=== PATIENT | male | born 1945 | race Caucasian/White ===

== ENCOUNTER → 2016-08-20 | Outpatient (CLI) | payer OTHER | LOC: M LAB 12:48 | PROVIDERS: ATTEND Physician Assistant Medical | DX: E29.1 Testicular hypofunction (principal) ==

== ENCOUNTER → 2016-12-18 | Outpatient (REF) | payer OTHER ==
[2016-12-18 20:38] LABS: CALCIUM OXALATE CRYSTALS LARGE
== END ==
LOC: M LAB REF 16:39
PROVIDERS: ATTEND Physician Assistant
DX: R30.0 Dysuria (principal)

== ENCOUNTER → 2016-12-20 | Outpatient (REF) | payer OTHER ==
[2016-12-20 14:56] LABS: MICROSCOPIC INDICATED? MAN YES (NO)
[2016-12-20 15:00] LABS: RBC, URINE 30-40 /hpf (0-3)
[2016-12-20 15:01] LABS: SQUAMOUS EPITHELIAL CELL URINE SMALL AMOUNT /hpf (SMALL AMT)
[2016-12-20 15:02] LABS: BACTERIA, URINE NONE SEEN; MICROSCOPIC EXAM PERFORMED
== END ==
LOC: M LAB REF 12:57
PROVIDERS: ATTEND Physician Assistant Medical
DX: R30.0 Dysuria (principal)

== ENCOUNTER → 2016-12-25 | Outpatient (REF) | payer OTHER | LOC: M SMT 17:16 | PROVIDERS: ATTEND Nurse Practitioner Women's Health | DX: R39.12 Poor urinary stream (principal) ==

== ENCOUNTER → 2016-12-26 | Outpatient (CLI) | payer OTHER ==
[~2016-12-26] MED LIST: ASPI81CH32 PO; BIMA01SOL OU; CALC1TAB49 PO; CENT1CHW5 PO; COLA100C3 PO; D 501TAB PO; ISTA0.5S OU; METF-699 PO; METF500T PO; MINO1CAP PO; MYSO50TA5 PO; ORAC40CA PO; PRAV1TAB39 PO; PRIL20CA9 PO; PROP40TA PO; REFR0.5D8 OU; VITA100072 PO; VITA20008 PO; [UNRECOGNIZED DRUG - CODE] PO
[2016-12-29 00:06] LABS: TESTOSTERONE %FREE+WEAKLY BOUN 19.7 % (9.0-46.0); TESTOSTERONE FREE+WEAKLY BOUND 17.1 ng/dL (40.0-250.0)
== END ==
LOC: M LAB 06:41
PROVIDERS: ATTEND Physician Assistant Medical
DX: E29.1 Testicular hypofunction (principal)

== ENCOUNTER 2016-12-29 08:58 | Inpatient (IN) | payer MEDICARE, OTHER ==
[~2016-12-29] VITALS: Ht 182.9 cm; Wt 132.2 kg
[2016-12-29] MEDS ORDERED: PRAV1TAB39 PO (09:23)
[2016-12-29] MEDS ORDERED: [UNRECOGNIZED DRUG - CODE] PO (09:23)
[2016-12-29] MEDS ORDERED: PROP40TA PO (09:23)
[2016-12-29] MEDS ORDERED: PRIL20CA9 PO (09:23)
[2016-12-29] MEDS ORDERED: VITA100072 PO (09:23)
[2016-12-29] MEDS ORDERED: ORAC40CA PO (09:23)
[2016-12-29] MEDS ORDERED: MINO1CAP PO (09:23)
[2016-12-29] MEDS ORDERED: CALC1TAB49 PO (09:23)
[2016-12-29] MEDS ORDERED: ASPI81CH32 PO (09:23)
[2016-12-29] MEDS ORDERED: METF500T13 PO (09:23)
[2016-12-29] MEDS ORDERED: REFR0.5D8 OU (09:23)
[2016-12-29] MEDS ORDERED: COLA100C5 PO (09:23)
[2016-12-29] MEDS ORDERED: VITA20008 PO (09:23)
[2016-12-29] MEDS ORDERED: MYSO50TA5 PO (09:23)
[2016-12-29] MEDS ORDERED: ISTA0.5S OU (09:23)
[2016-12-29] MEDS ORDERED: BIMA01SOL OU (09:23)
[2016-12-29 10:12] LABS: BASO % 0.6 % (0.0-1.0); EOS # 0.2 K/mm3 (0.0-0.50); EOS % 2.7 % (0.0-3.0); LARGE UNSTAINED CELL # 0.1 K/mm3 (0.0-0.4); LYMPH # 1.3 K/mm3 (1.5-4.5); LYMPH % 18.9 % (24.0-44.0); MEAN CORPUSCULAR HEMOGLOBIN 32.4 pg (27.0-33.0); MEAN CORPUSCULAR HGB CONC 34.1 g/dl (32.0-36.5); MEAN CORPUSCULAR VOLUME 95.2 fl (80.0-96.0); MONO # 0.3 K/mm3 (0.0-0.8); MONO % 4.8 % (0.0-5.0); NEUTROPHILS # 4.7 K/mm3 (1.8-7.7); NEUTROPHILS % 71.1 % (36.0-66.0); PLATELET COUNT, AUTOMATED 133 k/mm3 (150-450); RED CELL DISTRIBUTION WIDTH 13.4 % (11.5-14.5); WHITE BLOOD COUNT 6.7 K/mm3 (4.0-10.0)
[2016-12-29 10:22] LABS: ABG BASE EXCESS 1.6 (-2.0-2.0); ABG HCO3 25.6 MEQ/L (22.0-26.0); ABG PARTIAL PRESSURE CO2 38.5 mmHg (35.0-45.0); ABG PARTIAL PRESSURE O2 62.6 mmHg (75.0-100.0); ABG STANDARD HCO3 25.7 MEQ/L (22.0-26.0); ABG TOTAL CO2 26.8 MEQ/L (23.0-31.0); ABG pH (ARTERIAL) 7.441 UNITS (7.350-7.450)
[2016-12-29 10:45] LABS: ALBUMIN 3.5 GM/DL (3.2-5.2); ALBUMIN/GLOBULIN RATIO 0.88 (1.00-1.93); ALKALINE PHOSPHATASE 91 U/L (45-117); ALT/SGPT 18 U/L (12-78); ANION GAP 7 MEQ/L (8-16); AST/SGOT 13 U/L (15-37); BILIRUBIN,DIRECT 0.1 MG/DL (0.0-0.2); BILIRUBIN,TOTAL 0.6 MG/DL (0.2-1.0); BLOOD UREA NITROGEN 12 MG/DL (7-18); CALCIUM LEVEL 8.6 MG/DL (8.8-10.2); CARBON DIOXIDE LEVEL 27 MEQ/L (21-32); CHLORIDE LEVEL 104 MEQ/L (98-107); CREATININE FOR GFR 0.77 MG/DL (0.70-1.30); GLOMERULAR FILTRATION RATE > 60.0 (>49); GLUCOSE, FASTING 195 MG/DL (80-110); POTASSIUM SERUM 4.4 MEQ/L (3.5-5.1); SODIUM LEVEL 138 MEQ/L (136-145); TOTAL PROTEIN 7.5 GM/DL (6.4-8.2)
--- NOTE | 2016-12-29 10:50 | REP ---
Clinical: Dyspnea and cough . Comparison: 11/02/2011 . Findings: The mediastinum and cardiac silhouette are stable and within normal limits for portable technique. The lung henao are clear without acute consolidation, effusion, or pneumothorax. Skeletal structures are intact. Impression: No acute cardiopulmonary process appreciated. Signed by Kailash Bautista MD 12/29/2016 10:42 A
[2016-12-29] MEDS ORDERED: ACETAMINOPHEN 325 MG TAB PO ONE (11:15)
[2016-12-29] MEDS ORDERED: PROPRANOLOL 20 MG TAB PO ONE (11:15)
[2016-12-29] MEDS ORDERED: ISOVUE-370 76% 100ML VIAL (Q9967) As Ordered ONE (11:43)
--- NOTE | 2016-12-29 12:22 | REP ---
Clinical: Hypoxia and shortness of breath. Technique: Axial contrast enhanced images from the thoracic inlet to the upper abdomen using 100 ml Isovue 370 intravenous contrast material with multiplanar re-formations. Findings: Significant, acute pulmonary emboli are identified including right main pulmonary artery with extension into the right upper lobe, right lower lobe, and right middle lobe pulmonary arteries as well as second order left-sided emboli extending to the lingula and left lower lobe pulmonary arteries. A left upper lobe infiltrate along with bilateral perihilar infiltrates suggest associated multifocal pneumonia. No effusion. No pneumothorax. Thoracic aorta and heart/pericardium are normal. Surrounding musculoskeletal structures intact. Impression: Significant bilateral pulmonary emboli with multifocal pneumonia. Findings discussed with Dr. Glasgow of the emergency department. Signed by Kailash Bautista MD 12/29/2016 12:14 P
--- NOTE | 2016-12-29 12:57 | REP ---
Clinical: Acute pulmonary embolus. Evaluate for DVT. Technique: Flores scale and color Doppler evaluation using linear high frequency transducer. Findings: Ultrasound examination of the right and left lower extremity deep venous structures from the common femoral vein to the popliteal vein demonstrates acute thrombus in the right popliteal vein and otherwise normal compressibility flow and wave patterns in response to respiration and augmentation. The left lower extremity is completely normal and without DVT. Impression: Right lower extremity with popliteal vein thrombus. Normal left lower extremity without DVT. Signed by Kailash Bautista MD 12/29/2016 12:48 P
[2016-12-29 13:33] LABS: INR 1.08
[2016-12-29] MEDS ORDERED: DEXTROSE 50% 50 ML SYRINGE IV PRN (14:00)
[2016-12-29] MEDS ORDERED: GLUCAGON FOR INJ 1 MG VIAL (J1610) SC PRN (14:00)
[2016-12-29] MEDS ORDERED: CENT1CHW5 PO (14:04)
[2016-12-29] MEDS ORDERED: D 501TAB PO (14:06)
[2016-12-29] MEDS ORDERED: METF-699 PO (14:06)
[2016-12-29] MEDS ORDERED: LABETALOL HCL 100 MG/20 ML VIAL IV STA (14:08)
[2016-12-29] MEDS: ENOXAPARIN 150 MG/ML SYR (J1650) SC SCH (15:12)
[2016-12-29 16:00] VITALS: BP 158/83
--- NOTE | 2016-12-29 16:28 | HPE ---
DATE OF ADMISSION: 12/29/2016 PRIMARY CARE PROVIDER: Dr. Bernard CHIEF COMPLAINT: Dyspnea. HISTORY OF PRESENT ILLNESS: The patient is a 71-year-old male with a past medical history of obstructive sleep apnea, diastolic congestive heart failure (CHF), morbid obesity, who presented with dyspnea that started 3 to 4 days ago. The patient initially had sensation and then it progressed to shortness of breath, especially with exertion. Yesterday, he had some cramping in his right calf. Today he felt an uncomfortable sensation in both calves. His is at bedside and reported that he leads a sedentary lifestyle. The patient responded, "it is because I am chronically tired." He also reports dry cough for 2 to 3 days. Denies chest pain, fever, chills, palpitations, headache, blurry vision. REVIEW OF SYSTEMS: 10-point system was negative except for listed above in history of present illness. PAST MEDICAL HISTORY: Includes: 1. Essential hypertension. 2. Obstructive sleep apnea. The patient uses BiPAP at home. 3. Diastolic congestive heart failure (CHF). 4. Non insulin dependent diabetes. 5. Morbid obesity. 6. Enlarged heart. 7. Low testosterone level. PAST SURGICAL HISTORY: Vasectomy in 1989, umbilical hernia repair in 1993/1994, gastric bypass surgery in 2010. FAMILY HISTORY: Father from myocardial infarction in his 50s. Mother at age 76. She had diabetes, pancreatic insufficiency, coronary artery disease. Paternal grandmother had breast cancer and in her 40s. SOCIAL HISTORY: The patient never smoked. Denies alcohol abuse and recreational drug use. He is and has four children. 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 ALLERGIES TO MEDICATIONS: CARDURA reaction is generalized edema. MEDICATIONS: Include: - baby aspirin - vitamin B12 1000 mcg daily - docusate sodium 100 mg once a day as needed for constipation - minocycline 100 mg by mouth twice a day - omeprazole 20 mg daily - pravastatin 20 mg at nighttime - primidone 50 mg by mouth at night - propranolol 40 mg once a day - Lumigan eye drops, one drop in both eyes at night - calcium citrate with vitamin D 200/250 mg/units two tablets by mouth twice a day - Refresh Tears 0.5% to both eyes three times a day as needed - multivitamin - vitamin D 35,000 units daily - metformin 500 mg by mouth twice a day - Timolol 0.5% solution one drop to both eyes in the morning LABORATORY DATA: White blood cell count 6.7, hemoglobin 15, hematocrit 23, platelets 133. Coagulopathy: INR 1.08, PT 14.2, PTT 35.9. Pending coag level workup. Blood gas showed pH 7.44, PCO2 of 38.5, PO2 of 62.6, bicarbonate 25.6. Oxygen saturation 91.7. Base excess 1.6. Immunology: Pending cardiolipin antibodies. IMAGING STUDIES: Chest x-ray with no acute cardiopulmonary disease. Ultrasound revealed a positive right popliteal vein thrombus. CT angio significant bilateral pulmonary emboli with multiple pneumonia. Findings discussed with Dr. Glasgow. EKG showed normal sinus rhythm at 82 with right ventricular conduction delay. IMPRESSION: 1. Acute hypoxic respiratory failure secondary to pulmonary emboli and pneumonia. 2. Thrombocytopenia. 3. Morbid obesity. 4. History of elf-xlvllyu-brawjecsp diabetes mellitus, uncontrolled. 5. History of hypertension, uncontrolled. 6. History of obstructive sleep apnea, stable. PLAN: The patient is admitted to the progressive care unit (PCU) and started on Lovenox 130 mg twice a day. He will be needing BiPAP at night. Continue oxygen supplementation as needed. Monitor platelet level. Recommend discontinuation if platelet fall below 100. Blood sugar will be monitored and covered with insulin in the hospital. Resume all the home necessary medications. Followup pending anticoagulation workup. The patient was advised to lead a more active life and to improve his diet by cutting out unnecessary calories.
[2016-12-29] MEDS ORDERED: IPRATROPIUM 0.5MG/ALBUTEROL 2.5MG INH SOL UD 3ML (DUONEB)(J7620) NEB PRN (17:45)
[2016-12-29] MEDS: FUROSEMIDE 40 MG/4 ML VIAL (J1940) IV ONE ×2 (17:54→18:00)
[2016-12-29] MEDS: IPRATROPIUM 0.5MG/ALBUTEROL 2.5MG INH SOL UD 3ML (DUONEB)(J7620) NEB SCH ×2 (17:57→19:43)
--- NOTE | 2016-12-29 18:12 | ECGEPIP ---
Stationary ECG Study [facility] - ED Test Date: 2016-12-29 Pat Name: ALFRED MELTON Department: Room: [place] [address] Gender: M [employer] Professor: pedro pablo : 1945 Requested By: Cathy Cespedes Order Number: [id number] Reading MD: Cathy Cespedes Measurements Intervals [place] Rate: 98 P: 56 IA: 191 QRS: 3 QRSD: 90 T: 19 QT: 355 QTc: 454 Interpretive Statements SINUS RHYTHM POSSIBLE RIGHT VENTRICULAR CONDUCTION DELAY INCREASED RATE 11/02/11 Electronically Signed On 12-29-2016 18:11:50 EDT by Cathy Cespedes
[2016-12-29] MEDS: HumaLOG INSULIN (NovoLOG) PER UNIT SC SCH ×2 (18:28→20:56)
[2016-12-29 19:54] VITALS: BP 147/82
[2016-12-29] MEDS ORDERED: DOCUSATE SODIUM 100 MG CAP PO PRN (23:00)
[2016-12-29 23:39] VITALS: BP 143/71
[2016-12-29] MEDS: PRAVASTATIN 20 MG TAB PO SCH (23:40)
[2016-12-29] MEDS: PROPRANOLOL 20 MG TAB PO SCH (23:41)
[2016-12-29] MEDS: PRIMIDONE 50 MG TAB PO SCH (23:41)
[2016-12-29] MEDS: MINOCYCLINE 50 MG CAP PO SCH (23:42)
[2016-12-30] MEDS: IPRATROPIUM 0.5MG/ALBUTEROL 2.5MG INH SOL UD 3ML (DUONEB)(J7620) NEB SCH ×4 (02:00→20:05)
[2016-12-30 04:00] VITALS: BP 145/79
[2016-12-30] MEDS: ENOXAPARIN 150 MG/ML SYR (J1650) SC SCH ×2 (04:32→16:40)
[2016-12-30 05:51] LABS: INR 1.08
[2016-12-30 05:54] LABS: BASO % 0.4 % (0.0-1.0); EOS # 0.1 K/mm3 (0.0-0.50); EOS % 1.4 % (0.0-3.0); LARGE UNSTAINED CELL # 0.1 K/mm3 (0.0-0.4); LARGE UNSTAINED CELL % 2.3 % (0.0-4.0); LYMPH # 1.7 K/mm3 (1.5-4.5); LYMPH % 27.6 % (24.0-44.0); MEAN CORPUSCULAR HEMOGLOBIN 32.8 pg (27.0-33.0); MEAN CORPUSCULAR VOLUME 93.7 fl (80.0-96.0); MONO # 0.4 K/mm3 (0.0-0.8); MONO % 7.5 % (0.0-5.0); NEUTROPHILS # 3.5 K/mm3 (1.8-7.7); NEUTROPHILS % 60.8 % (36.0-66.0); PLATELET COUNT, AUTOMATED 139 k/mm3 (150-450); RED CELL DISTRIBUTION WIDTH 13.7 % (11.5-14.5); WHITE BLOOD COUNT 5.8 K/mm3 (4.0-10.0)
[2016-12-30 06:21] LABS: ALBUMIN 3.2 GM/DL (3.2-5.2); ALBUMIN/GLOBULIN RATIO 0.84 (1.00-1.93); ALKALINE PHOSPHATASE 88 U/L (45-117); ALT/SGPT 16 U/L (12-78); ANION GAP 8 MEQ/L (8-16); AST/SGOT 12 U/L (15-37); BILIRUBIN,TOTAL 0.5 MG/DL (0.2-1.0); BLOOD UREA NITROGEN 11 MG/DL (7-18); CALCIUM LEVEL 8.4 MG/DL (8.8-10.2); CARBON DIOXIDE LEVEL 25 MEQ/L (21-32); CHLORIDE LEVEL 106 MEQ/L (98-107); CREATININE FOR GFR 0.85 MG/DL (0.70-1.30); GLOMERULAR FILTRATION RATE > 60.0 (>49); GLUCOSE, FASTING 167 MG/DL (80-110); POTASSIUM SERUM 4.1 MEQ/L (3.5-5.1); SODIUM LEVEL 139 MEQ/L (136-145)
[2016-12-30] MEDS: HumaLOG INSULIN (NovoLOG) PER UNIT SC SCH ×4 (07:40→21:00)
[2016-12-30] MEDS: PROPRANOLOL 20 MG TAB PO SCH ×2 (07:43→21:04)
[2016-12-30] MEDS: MINOCYCLINE 50 MG CAP PO SCH (07:43)
[2016-12-30] MEDS: ASPIRIN 81 MG CHEW TABLET PO SCH (07:44)
[2016-12-30] MEDS: OMEPRAZOLE 20 MG CAP PO SCH (07:44)
[2016-12-30] MEDS: CYANOCOBALAMIN 500 MCG TAB PO SCH (07:44)
[2016-12-30 08:00] VITALS: BP 124/64
--- NOTE | 2016-12-30 08:00 | IPNPDOC ---
Text Note Date of Service The patient was seen on 12/30/16. NOTE Subjective: Pt states dyspnea has improved. No CP/palpitations. Objective: Vitals: (see below) General: No acute distress, laying comfortably in bed. HEENT: Moist mucous membranes. Neck: No JVD or lymphadenopathy Cardiac: RRR, No murmurs Pulm: Clear to auscultation b/l. No wheezing, rhonchi Abd: NT/ND + BS, obese Ext: No edema or cyanosis. Distal pulses intact Labs (see below) Images: U/S LE 12/29/16 Impression: Right lower extremity with popliteal vein thrombus. Normal left lower extremity without DVT. CTA Chest 12/29/16 Impression: Significant bilateral pulmonary emboli with multifocal pneumonia. Findings discussed with Dr. Glasgow of the emergency department. Echocardiogram 12/30/16 CONCLUSIONS: 1. Study is of acceptable technical quality. 2. Normal LV size with mild LVH and normal LV systolic function. Grade 1 diastolic dysfunction. 3. Dilated hypokinetic right ventricle. 4. Dilated right atrium. 5. No hemodynamically significant valvular disease. 6. Probably normal central venous pressure but at least moderate pulmonary hypertension. Assessment/Plan 1. Acute bilateral PE with right lower extremity DVT. Started on Lovenox weight- based. Patient is currently hypoxic. Pt with RV strain on echocardiogram and elevated troponin, which which does carry a worse prognosis. Will monitor patient closely on telemetry. Currently hemodynamically stable, although on a ventimask as he is hypoxic. Will need outpatient hypercoagulable workup once she is finished with her treatment of anticoagulation. 2. NSTEMI - 2/2 Acute PE. EKG with no acute ST changes. WIll trend cardiac markers. 3. Multifocal pneumonia- patient does not have any fevers or leukocyte, however given the areas of consolidation that the patient is hypoxic, we'll start Levaquin. 4. Thrombocytopenia- we'll continue to monitor. No bleeding at this time. 5. Morbid obesity 6. ZAHRA on CPAP 7. Bnd-fmpkbql-cvfiyeeqk diabetes mellitus- sliding scale insulin 8. Hypertension- continue home meds DVT prophy: On lovenox Prognosis guarded. I have spoken to the patient in detail regarding the above findings, and the increased mortality given the extent of the PEs and the RV strain. VS,Fishbone, I+O VS, Fishbone, I+O Laboratory Tests 12/29/16 09:53 Red Blood Count 4.51, Mean Corpuscular Volume 95.2, Mean Corpuscular Hemoglobin 32.4, Mean Corpuscular Hemoglobin Concent 34.1, Red Cell Distribution Width 13.4 , Neutrophils (%) (Auto) 71.1 H, Lymphocytes (%) (Auto) 18.9 L, Monocytes (%) ( Auto) 4.8, Eosinophils (%) (Auto) 2.7, Basophils (%) (Auto) 0.6, Neutrophils # ( Auto) 4.7, Lymphocytes # (Auto) 1.3 L, Monocytes # (Auto) 0.3, Eosinophils # ( Auto) 0.2, Basophils # (Auto) 0.0 12/30/16 05:05 Red Blood Count 4.09 L, Mean Corpuscular Volume 93.7, Mean Corpuscular Hemoglobin 32.8, Mean Corpuscular Hemoglobin Concent 35.0, Red Cell Distribution Width 13.7, Neutrophils (%) (Auto) 60.8, Lymphocytes (%) (Auto) 27.6, Monocytes (%) (Auto) 7.5 H, Eosinophils (%) (Auto) 1.4, Basophils (%) ( Auto) 0.4, Neutrophils # (Auto) 3.5, Lymphocytes # (Auto) 1.7, Monocytes # (Auto ) 0.4, Eosinophils # (Auto) 0.1, Basophils # (Auto) 0.0, Calcium Level 8.4 L, Aspartate Amino Transf (AST/SGOT) 12 L, Alanine Aminotransferase (ALT/SGPT) 16, Alkaline Phosphatase 88, Total Bilirubin 0.5, Total Protein 7.0, Albumin 3.2 Vital Signs Date Time Temp Pulse Resp B/P (MAP) Pulse Ox O2 Delivery O2 Flow Rate FiO2 12/30/16 07:43 80 124/64 12/30/16 07:39 Venturi Mask 15.0 35 12/30/16 04:00 97.3 20 90 I&O- Last 24 Hours up to 6 AM 12/30/16 05:59 Intake Total 480 ml Output Total 1100 ml Balance -620 ml UMBERTO FINCH MD Dec 30, 2016 08:00
[2016-12-30 09:38] LABS: ABG BASE EXCESS 0.2 (-2.0-2.0); ABG HCO3 24.1 MEQ/L (22.0-26.0); ABG PARTIAL PRESSURE O2 97.6 mmHg (75.0-100.0); ABG STANDARD HCO3 24.6 MEQ/L (22.0-26.0); ABG TOTAL CO2 25.3 MEQ/L (23.0-31.0); ABG pH (ARTERIAL) 7.432 UNITS (7.350-7.450)
[2016-12-30] MEDS: LevoFLOXacin IV 500 MG in APPROPRIATE DILUENT 1 EA IV SCH (10:01)
[2016-12-30 12:00] VITALS: BP 130/72
--- NOTE | 2016-12-30 13:54 | ECHO ---
DATE OF STUDY: 12/30/2016 TWO-DIMENSIONAL ECHOCARDIOGRAM REFERRING PHYSICIAN: Dr. Valente Winn and Dr. Za Diamond INDICATION: Pulmonary embolism. The patient measures 72 inches and weighs 291 pounds. DIMENSIONS: IVS 1.4 LV 4.1 LVPW 1.3 LA 3.8 Aorta 3.5 Ascending aorta 3.6 Right ventricle 3.8 LV systolic 3.1 FINDINGS: The study is of acceptable technical quality. Left ventricle is normal size and systolic function with estimated EF 60-65%. Mild left ventricular hypertrophy is present. Right ventricle is dilated and hypokinetic. Both atria are at least mildly enlarged right atrium much more than left. Aortic, mitral, tricuspid and pulmonic valves all appear normal. No pericardial effusion is noted. Inferior vena cava was poorly visualized but appears to have normal caliber and appropriately collapses with respiration. Aortic root and aortic arch appear normal. Abdominal aorta was not visualized. Doppler interrogation reveals no aortic stenosis or insufficiency. There is trivial mitral insufficiency and mild tricuspid insufficiency. Calculated pulmonary artery pressure is in 40s corresponding to moderate pulmonary hypertension. Pulmonic valve is functionally competent. Mitral inflow pattern and tissue Doppler imaging of mitral annulus indicate grade 1 diastolic dysfunction (tissue Doppler velocities of mitral annulus are 5.9 and 7.7 cm/sec in septal and lateral mitral annulus respectively). CONCLUSIONS: 1. Study is of acceptable technical quality. 2. Normal LV size with mild LVH and normal LV systolic function. Grade 1 diastolic dysfunction. 3. Dilated hypokinetic right ventricle. 4. Dilated right atrium. 5. No hemodynamically significant valvular disease. 6. Probably normal central venous pressure but at least moderate pulmonary hypertension. COMMENT: SBE prophylaxis is not recommended. MTDD
[2016-12-30 15:38] LABS: MAGNESIUM LEVEL 2.1 MG/DL (1.8-2.4)
[2016-12-30 16:00] VITALS: BP 133/70
[2016-12-30 20:14] VITALS: BP 142/79
[2016-12-30] MEDS: PRIMIDONE 50 MG TAB PO SCH (21:04)
[2016-12-30] MEDS: PRAVASTATIN 20 MG TAB PO SCH (21:04)
[2016-12-30] MEDS: BIMATOPROST OU SCH (22:41)
[2016-12-30 23:59] VITALS: BP 128/75
[2016-12-31] MEDS: IPRATROPIUM 0.5MG/ALBUTEROL 2.5MG INH SOL UD 3ML (DUONEB)(J7620) NEB SCH ×4 (01:46→20:34)
[2016-12-31 04:04] VITALS: BP 130/76
[2016-12-31] MEDS: ENOXAPARIN 150 MG/ML SYR (J1650) SC SCH ×2 (04:08→15:40)
[2016-12-31 06:23] LABS: BASO % 0.4 % (0.0-1.0); EOS # 0.2 K/mm3 (0.0-0.50); EOS % 3.8 % (0.0-3.0); LARGE UNSTAINED CELL # 0.1 K/mm3 (0.0-0.4); LARGE UNSTAINED CELL % 1.7 % (0.0-4.0); LYMPH # 1.6 K/mm3 (1.5-4.5); LYMPH % 27.3 % (24.0-44.0); MEAN CORPUSCULAR HEMOGLOBIN 31.7 pg (27.0-33.0); MEAN CORPUSCULAR HGB CONC 33.5 g/dl (32.0-36.5); MEAN CORPUSCULAR VOLUME 94.7 fl (80.0-96.0); MONO # 0.4 K/mm3 (0.0-0.8); MONO % 6.7 % (0.0-5.0); NEUTROPHILS # 3.4 K/mm3 (1.8-7.7); NEUTROPHILS % 60.1 % (36.0-66.0); PLATELET COUNT, AUTOMATED 143 k/mm3 (150-450); RED CELL DISTRIBUTION WIDTH 13.8 % (11.5-14.5); WHITE BLOOD COUNT 5.7 K/mm3 (4.0-10.0)
[2016-12-31 06:27] LABS: INR 1.05
[2016-12-31 06:49] LABS: ALBUMIN 3.1 GM/DL (3.2-5.2); ALBUMIN/GLOBULIN RATIO 0.79 (1.00-1.93); ALKALINE PHOSPHATASE 80 U/L (45-117); ALT/SGPT 16 U/L (12-78); ANION GAP 5 MEQ/L (8-16); AST/SGOT 12 U/L (15-37); BILIRUBIN,TOTAL 0.4 MG/DL (0.2-1.0); BLOOD UREA NITROGEN 13 MG/DL (7-18); CALCIUM LEVEL 8.3 MG/DL (8.8-10.2); CARBON DIOXIDE LEVEL 30 MEQ/L (21-32); CHLORIDE LEVEL 107 MEQ/L (98-107); CREATININE FOR GFR 0.91 MG/DL (0.70-1.30); GLOMERULAR FILTRATION RATE > 60.0 (>49); GLUCOSE, FASTING 161 MG/DL (80-110); POTASSIUM SERUM 4.2 MEQ/L (3.5-5.1); SODIUM LEVEL 142 MEQ/L (136-145)
[2016-12-31] MEDS: LevoFLOXacin IV 500 MG in APPROPRIATE DILUENT 1 EA IV SCH (07:46)
[2016-12-31] MEDS: HumaLOG INSULIN (NovoLOG) PER UNIT SC SCH ×4 (07:47→20:50)
[2016-12-31 08:00] VITALS: BP 147/80
--- NOTE | 2016-12-31 08:05 | IPNPDOC ---
Text Note Date of Service The patient was seen on 12/31/16. NOTE Subjective: States dyspnea has improved.Denies CP/Palpitations. Had an upset stomach after eating. Requesting a pulmonary consult as he follows with . Objective: Vitals: (see below) General: No acute distress, laying comfortably in bed. HEENT: Moist mucous membranes. Neck: No JVD or lymphadenopathy Cardiac: RRR, No murmurs Pulm: Clear to auscultation b/l. No wheezing, rhonchi Abd: NT/ND + BS, obese Ext: No edema or cyanosis. Distal pulses intact Labs (see below) Images: U/S LE 12/29/16 Impression: Right lower extremity with popliteal vein thrombus. Normal left lower extremity without DVT. CTA Chest 12/29/16 Impression: Significant bilateral pulmonary emboli with multifocal pneumonia. Findings discussed with Dr. Glasgow of the emergency department. Echocardiogram 12/30/16 CONCLUSIONS: 1. Study is of acceptable technical quality. 2. Normal LV size with mild LVH and normal LV systolic function. Grade 1 diastolic dysfunction. 3. Dilated hypokinetic right ventricle. 4. Dilated right atrium. 5. No hemodynamically significant valvular disease. 6. Probably normal central venous pressure but at least moderate pulmonary hypertension. Assessment/Plan 1. Acute bilateral PE with right lower extremity DVT. Started on Lovenox weight- based. Patient is currently hypoxic. Pt with RV strain on echocardiogram and elevated troponin, which which does carry a worse prognosis. Will monitor patient closely on telemetry. Currently hemodynamically stable, although on a ventimask as he is hypoxic. Will need outpatient hypercoagulable workup once she is finished with her treatment of anticoagulation. Will consult Dr. Vásquez. 2. NSTEMI - 2/2 Acute PE. EKG with no acute ST changes. CE peaked, and have trended down. 3. Multifocal pneumonia- patient does not have any fevers or leukocyte, however given the areas of consolidation that the patient is hypoxic, On levaquin. 4. Thrombocytopenia- we'll continue to monitor. No bleeding at this time. 5. Morbid obesity 6. ZAHRA on CPAP 7. Oop-bqzpxhc-gussaadjh diabetes mellitus- sliding scale insulin 8. Hypertension- continue home meds DVT prophy: On lovenox Prognosis guarded. I have spoken to the patient in detail regarding the above findings, and the increased mortality given the extent of the PEs and the RV strain. VS,Fishbone, I+O VS, Fishbone, I+O Laboratory Tests 12/31/16 06:13 Red Blood Count 4.12 L, Mean Corpuscular Volume 94.7, Mean Corpuscular Hemoglobin 31.7, Mean Corpuscular Hemoglobin Concent 33.5, Red Cell Distribution Width 13.8, Neutrophils (%) (Auto) 60.1, Lymphocytes (%) (Auto) 27.3, Monocytes (%) (Auto) 6.7 H, Eosinophils (%) (Auto) 3.8 H, Basophils (%) ( Auto) 0.4, Neutrophils # (Auto) 3.4, Lymphocytes # (Auto) 1.6, Monocytes # (Auto ) 0.4, Eosinophils # (Auto) 0.2, Basophils # (Auto) 0.0, Calcium Level 8.3 L, Aspartate Amino Transf (AST/SGOT) 12 L, Alanine Aminotransferase (ALT/SGPT) 16, Total Creatine Kinase 77, Alkaline Phosphatase 80, Total Bilirubin 0.4, Total Protein 7.0, Albumin 3.1 L Vital Signs Date Time Temp Pulse Resp B/P (MAP) Pulse Ox O2 Delivery O2 Flow Rate FiO2 12/31/16 04:04 97.6 76 19 130/76 (94) 97 Venturi Mask 10.0 35 I&O- Last 24 Hours up to 6 AM 12/31/16 06:00 Intake Total 2040 ml Output Total 1450 ml Balance 590 ml UMBERTO FINCH MD Dec 31, 2016 08:05
[2016-12-31] MEDS: ASPIRIN 81 MG CHEW TABLET PO SCH (08:45)
[2016-12-31] MEDS: OMEPRAZOLE 20 MG CAP PO SCH (08:45)
[2016-12-31] MEDS: CYANOCOBALAMIN 500 MCG TAB PO SCH (08:45)
[2016-12-31] MEDS: PROPRANOLOL 20 MG TAB PO SCH ×2 (08:46→20:27)
[2016-12-31] MEDS: ISTALOL 0.5% OU SCH (08:49)
[2016-12-31] MEDS ORDERED: MIRALAX *UNIT DOSE* 17GM PACKET PO PRN (10:15)
[2016-12-31 11:30] VITALS: BP 142/70
[2016-12-31] MEDS: CALCIUM CITRATE PO SCH ×3 (12:00→20:30)
[2016-12-31] MEDS: D3 PO SCH ×3 (12:00→20:30)
[2016-12-31] MEDS: MULTIVITAMIN PO SCH (12:59)
[2016-12-31 13:32] VITALS: O2SAT 97
[2016-12-31 16:00] VITALS: BP 130/56
--- NOTE | 2016-12-31 18:20 | CR ---
DATE OF CONSULTATION: 12/31/2016 Time: 1430 hours ATTENDING PHYSICIAN: Sai Vásquez DO REFERRING PHYSICIAN: Dr. Winn PARK WORKER SUPERVISOR: Sai Vásquez MD CHIEF COMPLAINT: Dyspnea. HISTORY OF PRESENT ILLNESS: 71-year-old male with past medical history of diastolic heart failure, obstructive sleep apnea, uses BiPAP at night, hypertension presented with shortness of breath and dizziness started several days ago, worse on Saturday morning which was roughly two days ago. Per patient, the shortness of breath was worse when walking upstairs and also on exertion soon after he woke up on Saturday. The patient denies any pain in the lower extremity, however, he admits to some cramping according to HPI. The patient denies any recent traveling or any recent operations or weight changes. However, the patient admits to sedentary lifestyle since penitentiary in 2007. The patient also admits to dry cough for the past several days as well as a burning chest discomfort especially in the midsternum. However, he denies any fever or chills. Denies any actual chest pain, arm pain. Denies any abdominal pains, nausea, vomiting, diarrhea, constipation. He did admit to some headache, which was occipital which was resolved as well. In addition, last night while patient was in the hospital he stated that he could not tolerate his BiPAP which he normally uses at home. The patient did admit to discomfort on BiPAP when he was at home, he was only getting about 4 hours of sleep every night. In addition, the patient also admits to some increase of urinary frequency and urgency, which was resolved after a week of Bactrim and Pyridium treatment outpatient before he came in. ALLERGIES: The patient is allergic to DOXAZOSIN, which gives him generalized edema. HOME MEDICATIONS: - aspirin 81 mg 1 tablet by mouth every day - Lumigan 1 eye drop in each eye at bedtime - calcium citrate 2 tablets by mouth twice a day - Refresh tears 1 drop each eye three times a day as needed - Centrum Multivitamins gummies 2 chews by mouth every day - cholecalciferol 5000 units 1 tablet by mouth every day - vitamin B12 500 mcg by mouth every day - Colace 100 mg by mouth every day as needed - metformin extended release 100 mg 1 tablet by mouth twice a day - Minocin 100 mg 1 tablet by mouth twice a day - omeprazole 20 mg 1 tablet by mouth every day - pravastatin 20 mg 1 tablet by mouth at bedtime - Primidone 50 mg 1 tablet by mouth at bedtime - propranolol 40 mg one tablet by mouth twice a day - timolol 0.5% solution 1 drop in each eye every morning PAST MEDICAL HISTORY: 1. Obstructive sleep apnea on BiPAP at night. Was on CPAP until two years ago. Follows with Dr. Tobin outpatient. 2. Diastolic heart failure with ejection fraction of 60%. Follows with Dr. Paulson as outpatient. 3. Type 2 diabetes. Non-insulin dependent. 4. Hypertension. 5. Morbid obesity. 6. Low testosterone level. Was using replacement therapy. 7. Insomnia. 8. Essential tremor. PAST SURGICAL HISTORY: 1. Vasectomy in . 2. Umbilical repair in 1994. 3. Gastric bypass in 2010. 4. Renal stone removal several years ago. SOCIAL HISTORY: The patient denies any smoking. Admits to social drinking. Denies any recreational drug use. The patient does not exercise at home. 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 Admits to drinking about 2 cups of coffee a day. FAMILY HISTORY: The patient's father from myocardial infarction (MD) when he was 62. Mother at age of 76. Daughter had a spontaneous due to mutation of the gene MTHFR. The patient's grandmother also had breast cancer, in her 40s. REVIEW OF SYSTEMS: CONSTITUTIONAL: The patient denies any recent traveling, any sick contacts, any unintentional weight loss besides the weight loss from gastric bypass. Admits to headache which was suboccipital in the past few days. Denies any fever or chills. HEENT: Denies any changes with vision, smell, hearing or taste. Denies any trouble swallowing. Admits to nonproductive cough. CARDIOVASCULAR: Denies any palpitations. Admits to burning discomfort, substernal. Denies any swelling in the lower extremities. Denies any orthopnea. Admits to following up with Dr. Paulson as outpatient for congestive heart failure, likely diastolic type. PULMONARY: Does have extensive history of obstructive sleep apnea. Was on CPAP for 7 to 8 years before switched to BiPAP two years ago. The patient stated that he does have discomfort from wearing the mask at night and only sleeps roughly 4 hours a day and was unable to fall asleep after he wakes up. He admits to about three sleep studies in the past. Admits to shortness of breath, which was exertional. Denies use of oxygen in the past. Denied any recent traveling or any recent operations. Denies any recent trauma. GASTROINTESTINAL (GI): Denies any abdominal pain, nausea, vomiting, diarrhea or constipation. Before admission the patient did feel nauseous in the morning while he was on the hospital. GENITOURINARY (): The patient did have urinary frequency, urgency, and reduced stream a week before his symptoms started. He was treated with Bactrim and Pyridium at Urgent Care. MUSCULOSKELETAL: Admits to chronic lower back pain and knee pain. ENDOCRINE: The patient does have non-insulin dependent type 2 diabetse, metformin. HEMATOLOGY: The patient denies any intentional weight loss. Admits to back of the head feels sweaty at night sometimes. However, denies actual night sweats. Denies any easy bruising or any blood in his stool or urine. PSYCHIATRIC: Denies any anxiety, depression. NEUROLOGICAL: Denies any weakness on one side of his body or any numbness or tingling anywhere else. PHYSICAL EXAMINATION: VITAL SIGNS: Temperature 98.1, pulse 92, oxygen was 20, blood pressure 142/70, oxygen was saturating at 97% on 4 liters nasal cannula. The patient's total intake yesterday was 2100 and total output was 1275 with a balance of +825. Weight today is 132 kg. Weight on admission was 131 kg. CURRENT MEDICATIONS: - calcium citrate 2 tablets by mouth twice a day - MiraLAX 1 packet by mouth every day as needed - Eye drops - aspirin 81 mg by mouth every day - vitamin B12 500 mcg 1 tablet by mouth every day - omeprazole 20 mg 1 tablet by mouth every day - levofloxacin 500 mg IV every 24 hours - Colace 100 mg 1 tablet by mouth every day as needed - insulin sliding scale - pravastatin 20 mg 1 tablet by mouth at bedtime - primidone 50 mg 1 tablet by mouth at bedtime - propranolol 40 mg 1 tablet by mouth twice a day - DuoNeb treatment every 6 hours and every 12 hours as needed - insulin sliding scale - Lovenox 130 mg subcutaneously every 12 hours - dextrose 50% IV as needed - glucagon 1 mg as needed PHYSICAL EXAMINATION: GENERAL: The patient is a morbidly obese elderly male who was alert, awake and oriented times three. Does not appear to be in distress. Laying comfortably in bed with head elevated at 30 degrees. HEENT: Normocephalic, atraumatic. Extraocular movements intact. Mucous moist. NECK: Supple. No neck lymphadenopathy. CARDIOVASCULAR: Regular rate and rhythm, S1, S2. 2/6 systolic heart murmur. LUNGS: Clear to auscultation bilaterally. No wheezes, rales or rhonchi. ABDOMEN: Positive bowel sounds, obese, soft, nontender, nondistended. No peritoneal signs. No ecchymosis. EXTREMITIES: Trace pitting edema in bilateral lower extremities. SKIN: Warm and dry. NEUROLOGICAL: Cranial nerves II through XII intact. No focal neurological deficits. LABS: WBC 5.7, hemoglobin 13.1, hematocrit 39, with MCV of 94.7 and platelet count 143. Sodium 142, potassium 4.2, chloride 107, bicarbonate 30, BUN 13, creatinine 0.91. GFR greater than 60%. Fasting glucose 161. Calcium 8.3. Total bilirubin 0.4. AST 12, ALT 16. Alkaline phosphatase 80. Total CK 77, CK-MB 1.1. Troponin 0.06. Total protein 7, albumin 3.1. PT 13.8, INR 1.05. Anticardiolipin IgG, IgA and IgM antibody are pending. Glucose 135. Blood culture times two shows no growth after two days. On admission, the patient had vascular ultrasound of lower extremities bilaterally shows right lower extremity popliteal vein thrombus. On December 29, 2016, the patient had CTA of the chest. Shows significant bilateral pulmonary emboli with multifocal pneumonia. December 29, 2016, portable chest x-ray shows no acute cardiopulmonary process. ASSESSMENT AND PLAN: 71-year-old male with past medical history of obstructive sleep apnea, diastolic heart failure, and hypertension, non-insulin dependent type 2 diabetes presented with: 1. Bilateral pulmonary embolus. Appears to be improved. The patient was on Lovenox 130 mg by mouth twice a day; we recommended it to be switched to Xarelto. 2. Hypoxia. Likely secondary to pulmonary embolism. Currently resolved. The patient is currently on 4 liters of nasal cannula. Will attempt to titrate down, however, the patient may possibly need to be on oxygen when discharged. 3. Obstructive sleep apnea on BiPAP at night. The patient did complain about discomfort last night while using BiPAP. At this point, the patient may start Venturi mask at night at fi02 of 35% and may go home on oxygen 4 liters nasal cannula at night and we will look into patient's sleep study and will adjust patient's BiPAP setting accordingly. DISPOSITION: Continue patient on therapy for pulmonary embolism and hypoxia as well as obstructive sleep apnea. The patient has been discussed with the attending doctor, Dr. Vásquez. My preceptor for this patient encounter was Dr. Sai Vásquez. The preceptor was physically present in the room during the encounter and was fully available. As needed, all aspects of the patient interview, examination, medical decision making process, and medical care plan development were reviewed and approved by the preceptor. The preceptor is aware and concurs with the plan as stated in the body of this note and will attest to such by her cosignature. I,Sai Vásquez, conducted and independent exam and history and agree with the assessment and plan as outlined above MTDD
[2016-12-31 20:00] VITALS: BP 144/74
[2016-12-31] MEDS ORDERED: SLF 3 ML SYR IV PRN (20:00)
[2016-12-31] MEDS: PRIMIDONE 50 MG TAB PO SCH (20:27)
[2016-12-31] MEDS: PRAVASTATIN 20 MG TAB PO SCH (20:27)
[2016-12-31] MEDS: BIMATOPROST OU SCH (20:28)
[2016-12-31] MEDS: SLF 3 ML SYR IV SCH (20:32)
[2017-01-01] VITALS (9 sets, daily range): BP systolic 123–166; BP diastolic 76–85; O2SAT 80–96
[2017-01-01] MEDS: IPRATROPIUM 0.5MG/ALBUTEROL 2.5MG INH SOL UD 3ML (DUONEB)(J7620) NEB SCH ×4 (01:48→19:26)
[2017-01-01] MEDS: RIVAROXABAN 15 MG TAB (XARELTO) PO SCH ×2 (04:06→15:15)
[2017-01-01] MEDS: SLF 3 ML SYR IV SCH ×3 (04:07→21:19)
[2017-01-01 05:31] LABS: BASO % 0.4 % (0.0-1.0); EOS # 0.2 K/mm3 (0.0-0.50); EOS % 3.3 % (0.0-3.0); LARGE UNSTAINED CELL # 0.2 K/mm3 (0.0-0.4); LARGE UNSTAINED CELL % 2.4 % (0.0-4.0); LYMPH # 1.7 K/mm3 (1.5-4.5); LYMPH % 27.2 % (24.0-44.0); MEAN CORPUSCULAR HEMOGLOBIN 32.6 pg (27.0-33.0); MEAN CORPUSCULAR HGB CONC 34.3 g/dl (32.0-36.5); MEAN CORPUSCULAR VOLUME 94.9 fl (80.0-96.0); MONO # 0.5 K/mm3 (0.0-0.8); MONO % 7.3 % (0.0-5.0); NEUTROPHILS # 3.7 K/mm3 (1.8-7.7); NEUTROPHILS % 59.5 % (36.0-66.0); PLATELET COUNT, AUTOMATED 156 k/mm3 (150-450); RED CELL DISTRIBUTION WIDTH 13.4 % (11.5-14.5); WHITE BLOOD COUNT 6.3 K/mm3 (4.0-10.0)
[2017-01-01 05:38] LABS: INR 1.07
[2017-01-01 05:47] LABS: ALBUMIN/GLOBULIN RATIO 0.86 (1.00-1.93); ALKALINE PHOSPHATASE 81 U/L (45-117); ALT/SGPT 14 U/L (12-78); ANION GAP 7 MEQ/L (8-16); AST/SGOT 11 U/L (15-37); BILIRUBIN,TOTAL 0.4 MG/DL (0.2-1.0); BLOOD UREA NITROGEN 13 MG/DL (7-18); CALCIUM LEVEL 8.4 MG/DL (8.8-10.2); CARBON DIOXIDE LEVEL 29 MEQ/L (21-32); CHLORIDE LEVEL 105 MEQ/L (98-107); CREATININE FOR GFR 0.85 MG/DL (0.70-1.30); GLOMERULAR FILTRATION RATE > 60.0 (>49); GLUCOSE, FASTING 167 MG/DL (80-110); POTASSIUM SERUM 4.2 MEQ/L (3.5-5.1); SODIUM LEVEL 141 MEQ/L (136-145); TOTAL PROTEIN 6.5 GM/DL (6.4-8.2)
[2017-01-01] MEDS: HumaLOG INSULIN (NovoLOG) PER UNIT SC SCH ×4 (07:30→21:00)
[2017-01-01] MEDS: MULTIVITAMIN PO SCH (08:27)
[2017-01-01] MEDS: ISTALOL 0.5% OU SCH (08:28)
[2017-01-01] MEDS: ASPIRIN 81 MG CHEW TABLET PO SCH (08:30)
[2017-01-01] MEDS: PROPRANOLOL 20 MG TAB PO SCH ×2 (08:30→21:17)
[2017-01-01] MEDS: OMEPRAZOLE 20 MG CAP PO SCH (08:30)
[2017-01-01] MEDS: CYANOCOBALAMIN 500 MCG TAB PO SCH (08:30)
[2017-01-01] MEDS: LevoFLOXacin IV 500 MG in APPROPRIATE DILUENT 1 EA IV SCH (08:31)
[2017-01-01] MEDS ORDERED: MIRALAX *UNIT DOSE* 17GM PACKET PO PRN (10:00)
--- NOTE | 2017-01-01 11:05 | IPN ---
DATE: 01/01/2017 Time patient was seen was at 1010 hours. Patient has been seen and examined at bedside. No acute event overnight. Patient is feeling better. He is on 3 liters of nasal cannula, down from 4 liters of nasal cannula. Otherwise, he denies any chest pain or abdominal pains. Eating and drinking well. Denies any other current new complaints. PHYSICAL EXAMINATION: VITAL SIGNS: Temperature 97.6, pulse 72, respirations 18, blood pressure 166/85 , oxygen saturating 99% on 3 liters of nasal cannula. GENERAL: Patient is an obese, elderly male who looks younger than his age, who was alert, awake, oriented times three, does not appear to be in distress, sitting up comfortably in his recliner with head elevated at 90 degrees. HEENT: Normocephalic, atraumatic. Extraocular muscles intact. Mucous moist. NECK: Supple. No neck lymphadenopathy. CARDIOVASCULAR: Regular rate and rhythm, S1, S2. No murmur, rubs or gallops. LUNGS: Clear to auscultation bilaterally. No wheeze, rales or rhonchi. ABDOMEN: Positive bowel sounds. Soft, nontender, nondistended. No peritoneal signs. No ecchymosis. EXTREMITIES: No edema, clubbing or cyanosis. SKIN: Warm and dry. NEUROLOGIC: Cranial nerves II-XII intact. No focal neurologic deficit. LABORATORIES: WBC 6.3, hemoglobin 12.8, hematocrit 37.2 with a platelet count of 156, MCV of 94.9. Sodium 141, potassium 4.2, chloride 105, bicarbonate 29, BUN 13, creatinine 0.85 , GFR greater than 60, glucose 167, calcium 8.4, total bilirubin 0.4, AST 11, ALT 14, alkaline phosphatase 81, total protein 6.5, albumin 3. PT 14, 1.07. Anticardiolipin IgG, IgA and IgM pending. Accu-Chek glucose shows 154. Blood culture times two was negative over 3 days. No new imaging. ASSESSMENT AND PLAN: 1. Acute hypoxic respiratory rate failure secondary to bilateral pulmonary embolism (PE), which appears to be improved. Patient is on 3 liters of nasal cannula currently. We have recommended to switch patient to Xarelto. Currently , he does not complain of any side effects from Xarelto. 2. Obstructive sleep apnea on bilevel positive airway pressure (BiPAP) at night. Patient could not tolerate BiPAP yesterday. The day prior he was receiving a Venturi mask at FiO2 of 35%. Patient may go home on a Venturi mask as well. However, we will start to titrate the patient's BiPAP from 1612 to 16 and will continue to monitor patient on pulse oximetry. DISPOSITION: Continue Xarelto for deep venous thrombosis (DVT). Patient's hypoxia appears to be improving. We will adjust BiPAP for obstructive sleep apnea. Patient has been discussed with the attending doctor, Dr. Vásquez. My preceptor for this patient encounter was Sai Vásquez DO. The preceptor was physically present in the room during the encounter and was fully available. As needed, all aspects of the patient interview, examination, medical decision making process, and medical care plan development were reviewed and approved by the preceptor. The preceptor is aware and concurs with the plan as stated in the body of this note and will attest to such by her co-signature. ROOPA
[2017-01-01] MEDS: DOCUSATE SODIUM 100 MG CAP PO SCH ×2 (12:08→21:17)
[2017-01-01] MEDS: CALCIUM CITRATE PO SCH (17:26)
[2017-01-01] MEDS: D3 PO SCH (17:26)
[2017-01-01] MEDS: PRIMIDONE 50 MG TAB PO SCH (21:17)
[2017-01-01] MEDS: BIMATOPROST OU SCH (21:17)
[2017-01-01] MEDS: PRAVASTATIN 20 MG TAB PO SCH (21:17)
[2017-01-02] MEDS: IPRATROPIUM 0.5MG/ALBUTEROL 2.5MG INH SOL UD 3ML (DUONEB)(J7620) NEB SCH ×2 (01:55→07:34)
[2017-01-02 02:02] VITALS: O2SAT 96
[2017-01-02] MEDS: RIVAROXABAN 15 MG TAB (XARELTO) PO SCH (04:10)
[2017-01-02 04:14] VITALS: BP 132/80
[2017-01-02] MEDS: SLF 3 ML SYR IV SCH (05:25)
[2017-01-02 05:33] LABS: BASO % 0.4 % (0.0-1.0); EOS # 0.2 K/mm3 (0.0-0.50); EOS % 4.4 % (0.0-3.0); LARGE UNSTAINED CELL # 0.1 K/mm3 (0.0-0.4); LARGE UNSTAINED CELL % 2.2 % (0.0-4.0); LYMPH # 1.5 K/mm3 (1.5-4.5); LYMPH % 26.6 % (24.0-44.0); MEAN CORPUSCULAR HEMOGLOBIN 31.5 pg (27.0-33.0); MEAN CORPUSCULAR HGB CONC 33.3 g/dl (32.0-36.5); MEAN CORPUSCULAR VOLUME 94.7 fl (80.0-96.0); MONO # 0.3 K/mm3 (0.0-0.8); MONO % 5.4 % (0.0-5.0); NEUTROPHILS # 3.1 K/mm3 (1.8-7.7); NEUTROPHILS % 61.1 % (36.0-66.0); PLATELET COUNT, AUTOMATED 166 k/mm3 (150-450); RED CELL DISTRIBUTION WIDTH 13.5 % (11.5-14.5)
[2017-01-02] MEDS ORDERED: LevoFLOXacin 500 MG TABLET PO SCH (06:00)
[2017-01-02 06:08] LABS: ALBUMIN 3.2 GM/DL (3.2-5.2); ALKALINE PHOSPHATASE 80 U/L (45-117); ALT/SGPT 16 U/L (12-78); ANION GAP 8 MEQ/L (8-16); AST/SGOT 16 U/L (15-37); BILIRUBIN,TOTAL 0.5 MG/DL (0.2-1.0); BLOOD UREA NITROGEN 14 MG/DL (7-18); CALCIUM LEVEL 8.5 MG/DL (8.8-10.2); CARBON DIOXIDE LEVEL 29 MEQ/L (21-32); CHLORIDE LEVEL 103 MEQ/L (98-107); CREATININE FOR GFR 0.87 MG/DL (0.70-1.30); GLOMERULAR FILTRATION RATE > 60.0 (>49); GLUCOSE, FASTING 175 MG/DL (80-110); POTASSIUM SERUM 4.1 MEQ/L (3.5-5.1); SODIUM LEVEL 140 MEQ/L (136-145); TOTAL PROTEIN 6.4 GM/DL (6.4-8.2)
[2017-01-02 08:00] VITALS: BP 140/80
[2017-01-02] MEDS: OMEPRAZOLE 20 MG CAP PO SCH (08:24)
[2017-01-02] MEDS: CYANOCOBALAMIN 500 MCG TAB PO SCH (08:24)
[2017-01-02] MEDS: DOCUSATE SODIUM 100 MG CAP PO SCH (08:24)
[2017-01-02] MEDS: ASPIRIN 81 MG CHEW TABLET PO SCH (08:25)
[2017-01-02] MEDS: ISTALOL 0.5% OU SCH (08:25)
[2017-01-02] MEDS: MULTIVITAMIN PO SCH (08:26)
[2017-01-02 08:27] VITALS: BP 132/80
[2017-01-02] MEDS: PROPRANOLOL 20 MG TAB PO SCH (08:27)
[2017-01-02] MEDS: HumaLOG INSULIN (NovoLOG) PER UNIT SC SCH ×2 (08:27→12:21)
[2017-01-02] MEDS ORDERED: XARE15TA PO (09:43)
[2017-01-02] MEDS ORDERED: XARE20TA PO (09:43)
--- NOTE | 2017-01-02 10:18 | IPN ---
DATE: 01/01/2017 SUBJECTIVE: Mr. Cox is a 71-year-old male who was seen and examined at the bedside. The patient expressed that he feels good today. The patient denies chest pain, orthopnea, paroxysmal nocturnal dyspnea. The patient also denies nausea, vomiting, diarrhea or constipation. At the time of the visit, the patient's nasal cannula has decreased to 2 liters down from 4 liters of oxygen. The patient denies overnight issues. PHYSICAL EXAMINATION: VITAL SIGNS: Temperature 97.6, pulse 72, respiratory rate 18, blood pressure 166/85, pulse oximetry 97% on 2 liters nasal cannula. HEENT: Normocephalic, atraumatic. Pupils are equal and reactive to light. Oral mucosa is moist. NECK: Soft, supple. No lymphadenopathy. No thyromegaly. No jugular venous distention (JVD). HEART: Regular rate and rhythm. Normal S1, S2. No gallop, rub or murmur. LUNGS: The patient has clear breath sounds bilaterally. Good air movement. No rales or rhonchi. ABDOMEN: Obese. Positive bowel sounds in all quadrants. No tenderness to palpation or guarding. EXTREMITIES: No lower extremity edema. +2 pulses in both lower extremities. No cyanosis or clubbing. LABORATORY DATA: White blood cells 6.3, red blood cells 3.92, hemoglobin 12.8, hematocrit 37.2, MCV 94.9, MCH 32.6, MCHC 34.3, RDW 13.4, platelet count 156, neutrophil percentage 59.5, lymphocyte percentage 27.2, monocyte percentage 7.3, eosinophil percentage 3.3, basophil percentage 0.4, leukocyte percentage 2.4. Sodium 141, potassium 4.2, chloride 105, carbon dioxide 29, anion gap 7, BUN 15, creatinine 0.85, GFR more than 60, fasting glucose 167, calcium 8.4, total bilirubin 0.4, AST 11, ALT 14, alkaline phosphatase 81, total protein 6.5, albumin 3.0. ASSESSMENT AND PLAN: 1. Acute hypoxic respiratory failure. This is possibly secondary to bilateral pulmonary embolism. At this point, the patient is improving. The patient's nasal cannula has decreased to 2 liters. The patient has been started on Xarelto by tire adjuster. The patient also is followed with pulmonology. At this time, we will try to see if the patient can tolerate oxygen by decreasing the tidal rate and lower nasal cannula. 2. Obstructive sleep apnea. The patient is on BiPAP at home at night. However, the patient has not been tolerating BiPAP recently, possibly secondary to the pulmonary embolism. The patient was receiving Venturi mask at FiO2 of 35%. Based on the prognosis report, BiPAP has decreased from 16/12 to 16/8. 3. Non ST elevation myocardial infarction. This was possibly secondary to pulmonary embolism. The patient is asymptomatic. 4. Thrombocytopenia. This has resolved. The patient's platelet level is in normal range. 5. Morbid obesity. Chronic issue. 6. Dfp-nwniwwt-otgitplpt diabetes mellitus. The patient is on sliding scale. 7. Hypertension. The patient is continued on home medication. 8. Possible multifocal pneumonia. The patient does not have leukocytosis or fever. The patient is on IV Levaquin; however, we have switched to oral and he will finish a course of Levaquin. 9. Deep vein thrombosis (DVT) prophylaxis. The patient is on Xarelto. My preceptor for this patient encounter was Dr. Jones. The preceptor was physically present in the building during the encounter and was fully available. As needed, all aspects of the patient interview, examination, medical decision making process, and medical care plan development were reviewed and approved by the preceptor. The preceptor is aware and concurs with the plan as stated in the body of this note and will attest to such by his/her cosignature. I, Myron Jones, have both independently examined this patient as well as reviewed the documentation. I have discussed in detail with the resident the findings and plan of treatment as documented in the residents documentation. I will continue to follow the patient and offer further guidance to the patients care as necessary. ROOPA
--- NOTE | 2017-01-02 12:09 | NOCOX ---
DATE OF PROCEDURE: 01/01/2017 to 01/02/2017 Nocturnal oximetry was started on room air. The patient's resting oxygen saturation was 91% on room air. He was on bilevel noninvasive ventilation of 16/8 at that point in time. His heart rate ranged from 62-83 and oxygen saturation ranged from 66-100%. The longest continuous time with an oxygen saturation less than 70% was 58 seconds. The total time with an oxygen saturation less than 80% was 9 minutes and 46 seconds. The longest continuous time with an oxygen saturation less than 88% was 4 minutes. There were variable desaturations suggested on sleep testing. Two hours into the study, oxygen was applied which did help his oxygen saturation; however, the patient continued to have recurrent desaturations. IMPRESSION: Variable desaturations on current bilevel setting 16/8. RECOMMENDATION: Retitration in lab as the patient had been intolerant previous to previous settings. I suspect he needs additional expiratory positive airway pressure.
[2017-01-02] MEDS: D3 PO SCH (12:22)
[2017-01-02] MEDS: CALCIUM CITRATE PO SCH (12:22)
--- NOTE | 2017-01-02 12:36 | IPN ---
DATE: 01/02/2017: The patient has been seen and examined this morning. The patient has been tolerating BiPAP last night at least for 5 hours overnight. The patient denies any chest pain, abdominal pains, nausea, vomiting. The patient does complain of constipation. Denies any trouble with urination. Denies any other current complaints. VITAL SIGNS: Temperature 98, pulse 70, respiration 18, blood pressure 114/80, oxygen saturation 95% on room air. GENERAL: The patient is an obese, elderly male who is alert, oriented times three. Does not appear to be in distress, resting comfortably in bed with head of the bed elevated at 30 degrees. HEENT: Normocephalic, extraocular muscles intact. Mucous moist. Neck supple. No neck lymphadenopathy. CARDIOVASCULAR: Regular rate and rhythm. S1, S2. No murmur. RESPIRATORY: Lungs clear to auscultation bilaterally. No wheeze, rales or rhonchi. ABDOMEN: Positive bowel sounds. Soft, nontender, nondistended. No peritoneal signs. No ecchymosis. EXTREMITIES: No edema, clubbing or cyanosis. SKIN: Warm and dry. NEURO: Cranial nerves II through XII. No focal neurological deficit. LABS: WBC 5, hemoglobin 12.4, hematocrit 37.3 with a platelet count of 166. MCV of 94.7. Sodium 140, potassium 4.0, chloride 103, bicarbonate 39, BUN 14, creatinine 0.87. GFR greater than 60, fasting glucose was 175, calcium 8.5, total bilirubin 0.5, AST 16, ALT 16, alkaline phosphatase 18, total protein 6.4. The patient has anticardiolipin, IgG, IgA, IgM pending. The patient has a protein PADILLA antithrombin 3, factor V Leiden pending. The patient has had blood culture times two negative over 4 days. ASSESSMENT/PLAN: 71-year-old male who presented with: 1. Pulmonary embolus: Undergoing cardiopathy workup which is improving. The patient was not on oxygen this morning. The patient has been started on Xarelto 50 mg twice a day. The patient will actually need to ambulate today to measure if he desaturates without oxygen. 2. Hypoxia: Initially on 3 liters of nasal cannula, likely secondary to pulmonary embolus which has improved. 3. Obstructive sleep apnea: On BiPAP at night at home. The patient was on 15/06 at home. Rate was reduced to 16/8 yesterday due to patient complaint about discomfort on prior night. The patient did tolerate 16/8. However, nocturnal oximetry showed that the patient has been desaturating to the 80s. Therefore, will titrate the patient's BiPAP up to 16/10 today and continue to monitor. In addition, when the patient goes home, the patient will actually need oxygen at night. DISPOSITION: The patient's Xarelto is undergoing process to get pre-authorized, once approved , the patient may possibly go home. However, the patient will need ambulatory oxygen saturation check to see of the patient needs oxygen at home. Otherwise, the patient will likely need to re-titrate the BiPAP as an outpatient. The patient has been discussed with attending doctor, Dr. Vásquez. My preceptor for this patient encounter was Dr. Sai Vásquez. The preceptor was physically present in the room during the encounter and was fully available. As needed, all aspects of the patient interview, examination, medical decision making process, and medical care plan development were reviewed and approved by the preceptor. The preceptor is aware and concurs with the plan as stated in the body of this note and will attest to such by his/her cosignature. I, Sai Vásquez, conducted and independent history and bedside physical exam and agree with the assessment and plan as outlined above. ROOPA
[2017-01-02] MEDS ORDERED: LEVA1TAB2 PO (12:41)
--- NOTE | 2017-01-10 21:01 | DSES ---
DATE OF ADMISSION: 12/31/2016 DATE OF DISCHARGE: 01/02/2017 PRIMARY CARE PROVIDER: Michelle Bernard DO CONSULTANTS: Sai Vásquez DO, police detective PROCEDURES: None. MEDICATIONS: - Levaquin 500 mg by mouth daily for 6 days - Xarelto 50 mg by mouth twice a day - Zoloft 20 mg by mouth daily - aspirin 81 mg by mouth daily - bimatoprost one drop both eyes nightly - calcium citrate plus D3 200-250 two tablets by mouth twice a day - Refresh Tears one drop both eyes three times a day as needed for dry eyes - Centrum MultiGummies two chews by mouth daily - cholecalciferol 5000 units by mouth daily - vitamin B12 500 mcg by mouth daily - Colace 100 mg by mouth daily as needed for constipation - metformin 1000 mg by mouth twice a day - minocycline HCl 100 mg by mouth twice a day - Prilosec 20 mg by mouth daily - pravastatin sodium 20 mg by mouth nightly - primidone 50 mg by mouth nightly - propranolol 40 mg by mouth twice a day - timolol maleate one drop both eyes every morning PRIMARY DIAGNOSIS: Pulmonary embolus. SECONDARY DIAGNOSES: 1. Obstructive sleep apnea. 2. Non-ST elevation myocardial infarction. 3. Thrombocytopenia. 4. Morbid obesity. 5. Non-insulin dependent diabetes mellitus. 6. Hypertension. 7. Possible multifocal pneumonia. HISTORY OF PRESENT ILLNESS: Mr. Cox is a 71-year-old male with multiple past medical history who presented due to dyspnea. CT angio at the emergency room (ER) indicated bilateral pulmonary embolism with a multifocal pneumonia. Ultrasound revealed a positive right popliteal vein thrombosis. Chest x-ray showed no acute cardiopulmonary disease. EKG sinus rhythm at 82 with right ventricular conduction delay. Patient was admitted and started on Lovenox. Patient continued to be hypoxic the next day, however patient was hemodynamically stable. Cardiac markers were done the next day which indicated mild elevation of troponin I. Patient was diagnosed with non-ST elevation myocardial infarction (GA). EKG was not indicative of acute ST changes. Due to multifocal pneumonia patient was started on Levaquin, however patient did not have fever or leukocytosis, however patient has area of consolidation and was hypoxic. Patient has right ventricular strain on the echocardiogram. Pulmonology was consulted and patient was switched from Lovenox 130 mg by mouth twice a day to Xarelto. Patient was hypoxic which was thought to be secondary to pulmonary embolism. Patient was continued with the 4 liters nasal cannula. Patient complained about discomfort at night and one night while using bilevel positive airway pressure (BiPAP), therefore patient was started on Venturi mask at night at FiO2 of 35%. Before patient was being sent home, we have requested authorization for the Xarelto. Also, we checked the ambulatory oxygenation, which patient does not require oxygen. DISCHARGE PLACEMENT: Home. FOLLOWUP: Please followup with pulmonology and primary care within 5 days. ACTIVITY: Activity as tolerated by patient. My preceptor for this patient encounter was Dr. Myron Jones. The preceptor was physically present in the building during the encounter and was fully available. As needed, all aspects of the patient interview, examination, medical decision making process, and medical care plan development were reviewed and approved by the preceptor. The preceptor is aware and concurs with the plan as stated in the body of this note and will attest to such by his/her cosignature. I, Myron Jones, have both independently examined this patient as well as reviewed the documentation. I have discussed in detail with the resident the findings and plan of treatment as documented in the residents documentation. I will continue to follow the patient and offer further guidance to the patients care as necessary during this hospital stay. ROOPA
== END 2017-01-02 14:41 | disposition home or self-care (01) | DRG 175 ==
LOC: M ED 09:42 → M ED INP 13:49 → M PCU 15:49 → INTOOBSV 12-31 14:29 → OBSVTOIN 12-31 14:29
PROVIDERS: ADMIT Hospitalist; ATTEND Hospitalist
DX: I26.99 Other pulmonary embolism without acute cor pulmonale (principal); J96.01 Acute respiratory failure with hypoxia; J18.9 Pneumonia, unspecified organism; I21.4 Non-ST elevation (NSTEMI) myocardial infarction; I50.32 Chronic diastolic (congestive) heart failure; I82.431 Acute embolism and thrombosis of right popliteal vein; D69.6 Thrombocytopenia, unspecified; E29.1 Testicular hypofunction; E66.01 Morbid (severe) obesity due to excess calories; E11.65 Type 2 diabetes mellitus with hyperglycemia; G25.0 Essential tremor; I27.2 Other secondary pulmonary hypertension; I10 Essential (primary) hypertension; G47.33 Obstructive sleep apnea (adult) (pediatric); Z98.84 Bariatric surgery status; Z88.8 Allergy status to other drugs, medicaments and biological substances; Z79.82 Long term (current) use of aspirin; Z79.84 Long term (current) use of oral hypoglycemic drugs; Z79.899 Other long term (current) drug therapy; Z87.442 Personal history of urinary calculi; Z68.39 Body mass index [BMI] 39.0-39.9, adult

== ENCOUNTER → 2017-01-09 | Outpatient (CLI) | payer OTHER ==
[~2017-01-09] MED LIST changes: -COLA100C3 PO; +COLA100C5 PO; +LEVA1TAB2 PO; -METF500T PO; +METF500T13 PO; +XARE15TA PO; +XARE20TA PO
--- NOTE | 2017-01-12 13:33 | SLEEPCENT ---
DATE OF PROCEDURE: 01/09/2017 Nocturnal polysomnography was performed for re-titration of pressure therapy in this patient with obstructive sleep apnea syndrome. For testing, a ResMed Quattro full face mask of medium size was used. A bilevel device was applied, inspiratory pressure of 16 over expiratory pressure of 12, and the lights were extinguished. 6 hours and 53 minutes of data were reviewed. There were 369 minutes of sleep identified. Sleep latency was short at 3.5 minutes. Rapid eye movement (REM) sleep was short at 54 minutes. Sleep architecture was good with evidence of REM rebound late in the test. There were 3 REM periods appreciated. Overall sleep efficiency was 91%. EKG shows a sinus rhythm with an average heart rate of 58 beats per minute. EEG showed normal waveforms for awake and sleep. Persistence of respiratory events prompted an increase in pressure therapy. Best sleep was seen on an inspiratory pressure of 24 over an expiratory pressure of 20 with which the patient slept through REM without reps event or oxygen desaturation. There was little limb activity at optimal pressure and limb movement arousals were few. IMPRESSION: Severe obstructive sleep apnea syndrome (G47.33). RECOMMENDATION: Nightly use of bilevel pressure therapy, inspiratory pressure 24 over expiratory pressure of 20.
== END ==
LOC: M SLEEP 19:36
PROVIDERS: ATTEND Internal Medicine Pulmonary Disease
DX: G47.33 Obstructive sleep apnea (adult) (pediatric) (principal)

== ENCOUNTER → 2017-01-16 | Outpatient (REF) | payer OTHER | LOC: M LAB REF 13:28 | PROVIDERS: ATTEND Internal Medicine | DX: Z98.84 Bariatric surgery status (principal) ==

== ENCOUNTER 2017-02-23 10:47 | Emergency (ER) | payer OTHER ==
[~2017-02-23] VITALS: Ht 180.3 cm; Wt 131.8 kg
[2017-02-23] MEDS ORDERED: ASPIRIN 81 MG CHEW TABLET PO ONE ×2 (11:00→11:15)
[2017-02-23] MEDS ORDERED: ONDANSETRON 4MG/2ML VIAL (J2405) IV ONE (11:15)
[2017-02-23] MEDS ORDERED: MORPHINE 2 MG/ML 1ML SYRINGE IV ONE (11:15)
[2017-02-23] MEDS ORDERED: GI COCKTAIL 50ML BTL(HYOSCYAMINE/MAALOX/LIDOCAINE VISCOUS)(1:3:1) PO ONE (11:15)
--- NOTE | 2017-02-23 11:40 | REP ---
Chest one-view HISTORY: Chest pain Comparison: 12/29/2016 The lungs are clear. The heart is normal in size. The pulmonary vasculature is normal in appearance. Impression: No acute disease. Signed by Nicola Moody MD 02/23/2017 11:32 A
[2017-02-23 11:53] LABS: BASO % 0.5 % (0.0-1.0); EOS # 0.1 K/mm3 (0.0-0.50); EOS % 2.5 % (0.0-3.0); LARGE UNSTAINED CELL # 0.1 K/mm3 (0.0-0.4); LARGE UNSTAINED CELL % 2.3 % (0.0-4.0); LYMPH # 1.5 K/mm3 (1.5-4.5); LYMPH % 32.5 % (24.0-44.0); MEAN CORPUSCULAR HEMOGLOBIN 32.2 pg (27.0-33.0); MEAN CORPUSCULAR HGB CONC 34.3 g/dl (32.0-36.5); MEAN CORPUSCULAR VOLUME 93.8 fl (80.0-96.0); MONO # 0.3 K/mm3 (0.0-0.8); MONO % 7.2 % (0.0-5.0); NEUTROPHILS # 2.4 K/mm3 (1.8-7.7); NEUTROPHILS % 55.1 % (36.0-66.0); PLATELET COUNT, AUTOMATED 179 k/mm3 (150-450); RED CELL DISTRIBUTION WIDTH 13.5 % (11.5-14.5); WHITE BLOOD COUNT 4.4 K/mm3 (4.0-10.0)
[2017-02-23 11:58] LABS: INR 1.47
[2017-02-23 12:18] LABS: ALBUMIN 3.4 GM/DL (3.2-5.2); ALBUMIN/GLOBULIN RATIO 0.92 (1.00-1.93); ALKALINE PHOSPHATASE 71 U/L (45-117); ALT/SGPT 18 U/L (12-78); ANION GAP 8 MEQ/L (8-16); AST/SGOT 12 U/L (15-37); BILIRUBIN,DIRECT < 0.1 MG/DL (0.0-0.2); BILIRUBIN,TOTAL 0.3 MG/DL (0.2-1.0); BLOOD UREA NITROGEN 16 MG/DL (7-18); CALCIUM LEVEL 8.8 MG/DL (8.8-10.2); CARBON DIOXIDE LEVEL 28 MEQ/L (21-32); CHLORIDE LEVEL 109 MEQ/L (98-107); CREATININE FOR GFR 0.86 MG/DL (0.70-1.30); FREE T4 0.91 NG/DL (0.76-1.46); GLOMERULAR FILTRATION RATE > 60.0 (>49); GLUCOSE, FASTING 157 MG/DL (80-110); POTASSIUM SERUM 4.1 MEQ/L (3.5-5.1); SODIUM LEVEL 145 MEQ/L (136-145); TOTAL PROTEIN 7.1 GM/DL (6.4-8.2)
[2017-02-23] MEDS ORDERED: ISOVUE-370 76% 100ML VIAL (Q9967) As Ordered ONE (12:51)
--- NOTE | 2017-02-23 13:32 | REP ---
BILATERAL LOWER EXTREMITY DUPLEX VEINS: HISTORY: DVT. COMPARISON: 12/29/2016. Nonocclusive thrombus is present in the right popliteal vein. There are no filling defects in the remaining deep venous system. IMPRESSION: There is non-occlusive thrombus in the popliteal vein with no significant change compared to the previous study. LEFT LOWER EXTREMITY: There are no filling defects in the deep venous system. The deep venous system is patent. IMPRESSION: There is no deep venous thrombosis. Signed by Nicola Moody MD 02/23/2017 01:49 P
--- NOTE | 2017-02-23 14:19 | REP ---
CT ANGIO CHEST: HISTORY: Pulmonary embolism. Contrast: Isovue 370 75 ml Comparison: 12/29/2016 Small residual filling defects are present in pulmonary arteries in the right lower lobe, lingula and left lower lobe. The lungs are clear. There is no pleural effusion. There is no mediastinal mass. The heart is normal in size. Degenerative change is present in the thoracic spine. IMPRESSION: There are small residual filling defects present in pulmonary artery branches to the right and left lower lobes and left lingula consistent with pulmonary emboli. Signed by Nicola Moody MD 02/23/2017 02:29 P
[2017-02-23 15:54] VITALS: BP 169/96
--- NOTE | 2017-02-24 08:31 | ECGEPIP ---
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
--- NOTE | 2017-02-24 08:37 | ECGEPIP ---
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
== END 2017-02-23 16:08 | disposition home or self-care (01) ==
LOC: M ED 10:47
DX: R07.9 Chest pain, unspecified (principal); K21.9 Gastro-esophageal reflux disease without esophagitis; I25.10 Atherosclerotic heart disease of native coronary artery without angina pectoris; E11.9 Type 2 diabetes mellitus without complications; I10 Essential (primary) hypertension; E78.4 Other hyperlipidemia
CPT/HCPCS: 36415; 71010; 71275; 80048; 80076; 82550; 82553; 83880; 84439; 84443; 85025; 85610; 85730; 87040; 93005; 93041; 93970; 94760; 96374; 96375; 99285; J2405; Q9967

== ENCOUNTER → 2017-03-15 | Outpatient (CLI) | payer OTHER ==
[2017-03-15 07:40] LABS: BASO % 0.6 % (0.0-1.0); EOS # 0.1 K/mm3 (0.0-0.50); EOS % 2.7 % (0.0-3.0); LARGE UNSTAINED CELL # 0.1 K/mm3 (0.0-0.4); LARGE UNSTAINED CELL % 2.6 % (0.0-4.0); LYMPH # 1.7 K/mm3 (1.5-4.5); LYMPH % 34.5 % (24.0-44.0); MEAN CORPUSCULAR HEMOGLOBIN 32.9 pg (27.0-33.0); MEAN CORPUSCULAR HGB CONC 34.9 g/dl (32.0-36.5); MEAN CORPUSCULAR VOLUME 94.4 fl (80.0-96.0); MONO # 0.3 K/mm3 (0.0-0.8); MONO % 5.7 % (0.0-5.0); NEUTROPHILS # 2.6 K/mm3 (1.8-7.7); NEUTROPHILS % 53.8 % (36.0-66.0); PLATELET COUNT, AUTOMATED 170 k/mm3 (150-450); RED CELL DISTRIBUTION WIDTH 13.1 % (11.5-14.5); WHITE BLOOD COUNT 4.8 K/mm3 (4.0-10.0)
[2017-03-15 08:24] LABS: ALBUMIN 3.6 GM/DL (3.2-5.2); ALBUMIN/GLOBULIN RATIO 1.09 (1.00-1.93); ALKALINE PHOSPHATASE 67 U/L (45-117); ALT/SGPT 17 U/L (12-78); ANION GAP 8 MEQ/L (8-16); AST/SGOT 13 U/L (15-37); BILIRUBIN,TOTAL 0.3 MG/DL (0.2-1.0); BLOOD UREA NITROGEN 16 MG/DL (7-18); CALCIUM LEVEL 8.5 MG/DL (8.8-10.2); CARBON DIOXIDE LEVEL 31 MEQ/L (21-32); CHLORIDE LEVEL 108 MEQ/L (98-107); CREATININE FOR GFR 0.83 MG/DL (0.70-1.30); FERRITIN 52 NG/ML (26-388); GLOMERULAR FILTRATION RATE > 60.0 (>49); GLUCOSE, FASTING 157 MG/DL (80-110); MAGNESIUM LEVEL 1.8 MG/DL (1.8-2.4); PERCENT SATURATION 30.6 % (19.7-50.0); PHOSPHORUS LEVEL 3.5 MG/DL (2.5-4.9); POTASSIUM SERUM 4.5 MEQ/L (3.5-5.1); SODIUM LEVEL 147 MEQ/L (136-145); TOTAL IRON BINDING CAPACITY 343 UG/DL (250-450); TOTAL PROTEIN 6.9 GM/DL (6.4-8.2)
[2017-03-15 12:46] LABS: PRETREATED FOLATE FOR RBCFOL > 24.0 NG/ML
[2017-03-15 12:48] LABS: VITAMIN B12 LEVEL 418 PG/ML (247-911)
== END ==
LOC: M LAB 06:56
PROVIDERS: ATTEND Surgery
DX: K91.2 Postsurgical malabsorption, not elsewhere classified (principal); Z98.84 Bariatric surgery status; E55.9 Vitamin D deficiency, unspecified

== ENCOUNTER → 2017-07-30 | Outpatient (CLI) | payer OTHER ==
[2017-07-30 07:47] LABS: PSA SCREENING 0.27 NG/ML (< 4.0)
[2017-07-30 09:24] LABS: TESTOSTERONE 99 NG/DL (241-827)
[2017-08-01 14:14] LABS: TESTOSTERONE %FREE+WEAKLY BOUN 39.6 % (9.0-46.0); TESTOSTERONE FREE+WEAKLY BOUND 33.3 ng/dL (40.0-250.0); TESTOSTERONE TOTAL 84 ng/dL (264-916)
== END ==
LOC: M LAB 06:36
DX: E29.1 Testicular hypofunction (principal)
CPT/HCPCS: 84403

== ENCOUNTER 2017-11-17 11:28 | Emergency (ER) | payer OTHER ==
[2017-11-17 13:05] LABS: HEMATOCRIT 39.7 % (42.0-52.0); HEMOGLOBIN 13.2 g/dl (13.5-17.5); MEAN CORPUSCULAR HEMOGLOBIN 31.5 pg (27.0-33.0); MEAN CORPUSCULAR HGB CONC 33.2 g/dl (32.0-36.5); MEAN CORPUSCULAR VOLUME 94.7 fl (80.0-96.0); PLATELET COUNT, AUTOMATED 192 10^3/uL (150-450); RED BLOOD COUNT 4.19 10^6/uL (4.30-6.10); RED CELL DISTRIBUTION WIDTH 12.9 % (11.5-14.5); WHITE BLOOD COUNT 5.3 10^3/uL (4.0-10.0)
[2017-11-17 13:16] LABS: INR 1.16
[2017-11-17 13:32] LABS: ANION GAP 4 MEQ/L (8-16); BLOOD UREA NITROGEN 17 MG/DL (7-18); CALCIUM LEVEL 8.7 MG/DL (8.8-10.2); CARBON DIOXIDE LEVEL 29 MEQ/L (21-32); CHLORIDE LEVEL 109 MEQ/L (98-107); CREATININE FOR GFR 0.85 MG/DL (0.70-1.30); GLOMERULAR FILTRATION RATE > 60.0 (>42); GLUCOSE, FASTING 120 MG/DL (70-100); POTASSIUM SERUM 4.1 MEQ/L (3.5-5.1); SODIUM LEVEL 142 MEQ/L (136-145)
[2017-11-21 11:12] LABS: BEDSIDE GLUCOSE 105 MG/DL (83-110)
== END 2017-11-17 15:36 | disposition home or self-care (01) ==
LOC: M ED 11:28
DX: N20.0 Calculus of kidney (principal); N20.1 Calculus of ureter; E11.9 Type 2 diabetes mellitus without complications; I10 Essential (primary) hypertension; E78.00 Pure hypercholesterolemia, unspecified; K21.9 Gastro-esophageal reflux disease without esophagitis; G25.0 Essential tremor; Z98.84 Bariatric surgery status; Z79.01 Long term (current) use of anticoagulants
CPT/HCPCS: 74176

== ENCOUNTER → 2017-11-17 | Outpatient (REF) | payer OTHER ==
[2017-11-17 12:35] LABS: APPEARANCE, URINE CLOUDY (CLEAR); BACTERIA, URINE AUTO NEGATIVE (NEGATIVE); BILIRUBIN, URINE AUTO NEGATIVE (NEGATIVE); BLOOD, URINE BLOOD 3+ (NEGATIVE); COLOR, URINE RED (YELLOW); GLUCOSE, URINE (UA) AUTO NEGATIVE (NEGATIVE); KETONE, URINE AUTO NEGATIVE (NEGATIVE); LEUKOCYTE ESTERASE, URINE AUTO NEGATIVE (NEGATIVE); NITRITE, URINE AUTO NEGATIVE (NEGATIVE); PROTEIN, URINE AUTO 2+ mg/dL (NEGATIVE); RBC, URINE AUTO TNTC /HPF (0-3); SPECIFIC GRAVITY URINE AUTO 1.019 (1.002-1.035); SQUAMOUS EPITHELIAL CELL UR AU 0 /HPF (0-6); UROBILINOGEN, URINE AUTO 0.2 mg/dL (0.0-2.0); WBC, URINE AUTO 0 /HPF (0-3)
== END ==
LOC: M LAB REF 12:21
DX: R31.9 Hematuria, unspecified (principal)
CPT/HCPCS: 87086

== ENCOUNTER → 2017-11-18 | Outpatient (REF) | payer OTHER | LOC: M SMT 11:55 | DX: R31.0 Gross hematuria (principal) | CPT/HCPCS: 88108 ==

== ENCOUNTER → 2017-12-02 | Outpatient (REF) | payer OTHER ==
[2017-12-02 12:38] LABS: INR 1.37; PROTHROMBIN TIME 17.2 SECONDS (12.4-14.5)
[2017-12-02 12:39] LABS: AMORPHOUS SEDIMENT SMALL (NEGATIVE); APPEARANCE, URINE TURBID (CLEAR); BACTERIA, URINE AUTO NEGATIVE (NEGATIVE); BILIRUBIN, URINE AUTO NEGATIVE (NEGATIVE); BLOOD, URINE BLOOD 3+ (NEGATIVE); COLOR, URINE AMBER (YELLOW); GLUCOSE, URINE (UA) AUTO NEGATIVE (NEGATIVE); KETONE, URINE AUTO NEGATIVE (NEGATIVE); LEUKOCYTE ESTERASE, URINE AUTO NEGATIVE (NEGATIVE); MUCUS, URINE SMALL (NEGATIVE); NITRITE, URINE AUTO NEGATIVE (NEGATIVE); PROTEIN, URINE AUTO NEGATIVE (NEGATIVE); RBC, URINE AUTO 90 /HPF (0-3); SPECIFIC GRAVITY URINE AUTO 1.024 (1.002-1.035); SQUAMOUS EPITHELIAL CELL UR AU 0 /HPF (0-6); UROBILINOGEN, URINE AUTO 0.2 mg/dL (0.0-2.0); WBC, URINE AUTO 3 /HPF (0-3)
== END ==
LOC: M LAB REF 12:22
DX: Z01.818 Encounter for other preprocedural examination (principal); N20.0 Calculus of kidney; R31.0 Gross hematuria
CPT/HCPCS: 85610

== ENCOUNTER 2017-12-23 11:56 | Emergency (ER) | payer OTHER, MEDICARE ==
[2017-12-23] MEDS: NS 1,000 ML IV (13:17)
[2017-12-23] MEDS: ASPIRIN 81 MG CHEW TABLET PO (13:30)
[2017-12-23 13:41] LABS: BASO % 0.4 % (0.0-1.0); EOS # 0.2 10^3/uL (0.0-0.50); EOS % 2.7 % (0.0-3.0); HEMATOCRIT 36.6 % (42.0-52.0); HEMOGLOBIN 12.6 g/dl (13.5-17.5); IMMATURE GRANULOCYTE % 0.2 % (0-3.0); LYMPH # 1.6 10^3/uL (1.5-4.5); LYMPH % 28.2 % (24.0-44.0); MEAN CORPUSCULAR HEMOGLOBIN 31.9 pg (27.0-33.0); MEAN CORPUSCULAR HGB CONC 34.4 g/dl (32.0-36.5); MEAN CORPUSCULAR VOLUME 92.7 fl (80.0-96.0); MONO # 0.5 10^3/uL (0.0-0.8); MONO % 9.5 % (0.0-5.0); NEUTROPHILS # 3.3 10^3/uL (1.8-7.7); PLATELET COUNT, AUTOMATED 185 10^3/uL (150-450); RED BLOOD COUNT 3.95 10^6/uL (4.30-6.10); RED CELL DISTRIBUTION WIDTH 12.7 % (11.5-14.5); WHITE BLOOD COUNT 5.6 10^3/uL (4.0-10.0)
[2017-12-23] MEDS: IPRATROPIUM 0.5MG/ALBUTEROL 2.5MG INH SOL UD 3ML (DUONEB)(J7620) NEB (13:44)
[2017-12-23 13:53] LABS: ANION GAP 7 MEQ/L (8-16); BLOOD UREA NITROGEN 14 MG/DL (7-18); CALCIUM LEVEL 8.6 MG/DL (8.8-10.2); CARBON DIOXIDE LEVEL 29 MEQ/L (21-32); CHLORIDE LEVEL 109 MEQ/L (98-107); CK-MB VALUE MASS 1.3 NG/ML (<3.6); CPK CREATINE PHOSPHOKINASE 97 U/L (39-308); CREATININE FOR GFR 0.87 MG/DL (0.70-1.30); GLOMERULAR FILTRATION RATE > 60.0 (>42); GLUCOSE, FASTING 88 MG/DL (70-100); INR 0.93; MB/CK RELATIVE INDEX 1.34 (< OR =4); PARTIAL THROMBOPLASTIN TIME 26.9 SECONDS (26.8-37.9); POTASSIUM SERUM 4.7 MEQ/L (3.5-5.1); PROTHROMBIN TIME 12.5 SECONDS (12.4-14.5); SODIUM LEVEL 145 MEQ/L (136-145); TROPONIN I < 0.02 NG/ML (< 0.10)
[2017-12-23] MEDS ORDERED: ISOVUE-370 76% 100ML VIAL (Q9967) As Ordered (14:11)
[2017-12-23 14:17] LABS: ABG BASE EXCESS 2.1 (-2.0-2.0); ABG HCO3 27.8 MEQ/L (22.0-26.0); ABG O2 SATURATION 45.5 % (95.0-99.0); ABG PARTIAL PRESSURE CO2 47.4 mmHg (35.0-45.0); ABG STANDARD HCO3 25.2 MEQ/L (22.0-26.0); ABG TOTAL CO2 29.2 MEQ/L (23.0-31.0); ABG pH (ARTERIAL) 7.386 UNITS (7.350-7.450)
[2017-12-23 14:21] LABS: ABG PARTIAL PRESSURE O2 25.8 mmHg (75.0-100.0)
== END 2017-12-23 15:39 | disposition home or self-care (01) ==
LOC: M ED 11:56
DX: J45.909 Unspecified asthma, uncomplicated (principal); R07.89 Other chest pain; I10 Essential (primary) hypertension; Z86.711 Personal history of pulmonary embolism; Z98.84 Bariatric surgery status; J98.9 Respiratory disorder, unspecified; Z79.84 Long term (current) use of oral hypoglycemic drugs; Z79.899 Other long term (current) drug therapy; Z88.8 Allergy status to other drugs, medicaments and biological substances
CPT/HCPCS: Q9967

== ENCOUNTER → 2017-12-30 | Outpatient (CLI) | payer OTHER, MEDICARE ==
[2017-12-30 16:35] LABS: HEMATOCRIT 40.1 % (42.0-52.0); HEMOGLOBIN 13.7 g/dl (13.5-17.5); MEAN CORPUSCULAR HEMOGLOBIN 32.2 pg (27.0-33.0); MEAN CORPUSCULAR HGB CONC 34.2 g/dl (32.0-36.5); MEAN CORPUSCULAR VOLUME 94.4 fl (80.0-96.0); PLATELET COUNT, AUTOMATED 180 10^3/uL (150-450); RED BLOOD COUNT 4.25 10^6/uL (4.30-6.10); RED CELL DISTRIBUTION WIDTH 13.1 % (11.5-14.5); WHITE BLOOD COUNT 6.5 10^3/uL (4.0-10.0)
[2017-12-30 16:55] LABS: ANION GAP 11 MEQ/L (8-16); BLOOD UREA NITROGEN 18 MG/DL (7-18); CALCIUM LEVEL 8.6 MG/DL (8.8-10.2); CARBON DIOXIDE LEVEL 25 MEQ/L (21-32); CHLORIDE LEVEL 111 MEQ/L (98-107); CREATININE FOR GFR 0.94 MG/DL (0.70-1.30); GLOMERULAR FILTRATION RATE > 60.0 (>42); GLUCOSE, FASTING 132 MG/DL (70-100); NT-PRO BNP 36 PG/ML (<125); POTASSIUM SERUM 4.2 MEQ/L (3.5-5.1); SODIUM LEVEL 147 MEQ/L (136-145)
== END ==
LOC: M LAB 14:52
DX: R06.02 Shortness of breath (principal); I50.32 Chronic diastolic (congestive) heart failure
CPT/HCPCS: 71046

== ENCOUNTER → 2018-01-09 | Outpatient (CLI) | payer OTHER ==
[2018-01-09 12:49] LABS: APPEARANCE, URINE CLEAR (CLEAR); BACTERIA, URINE AUTO NEGATIVE (NEGATIVE); BILIRUBIN, URINE AUTO NEGATIVE (NEGATIVE); BLOOD, URINE BLOOD NEGATIVE (NEGATIVE); COLOR, URINE YELLOW (YELLOW); GLUCOSE, URINE (UA) AUTO NEGATIVE (NEGATIVE); KETONE, URINE AUTO NEGATIVE (NEGATIVE); LEUKOCYTE ESTERASE, URINE AUTO NEGATIVE (NEGATIVE); MUCUS, URINE SMALL (NEGATIVE); NITRITE, URINE AUTO NEGATIVE (NEGATIVE); PROTEIN, URINE AUTO NEGATIVE (NEGATIVE); RBC, URINE AUTO 1 /HPF (0-3); SPECIFIC GRAVITY URINE AUTO 1.026 (1.002-1.035); SQUAMOUS EPITHELIAL CELL UR AU 0 /HPF (0-6); UROBILINOGEN, URINE AUTO 0.2 mg/dL (0.0-2.0); WBC, URINE AUTO 2 /HPF (0-3)
[2018-01-18 00:05] LABS: CA Oxalate Dihy 20 % (.); COMMENT Note: (.); Ca Ox Monohydrate 70 % (.)
== END ==
LOC: M SMT 08:46
DX: N20.0 Calculus of kidney (principal)
CPT/HCPCS: 81001

== ENCOUNTER 2018-01-27 03:45 | Emergency (ER) | payer MEDICARE, OTHER ==
[2018-01-27 04:18] LABS: APPEARANCE, URINE HAZY (CLEAR); BACTERIA, URINE AUTO NEGATIVE (NEGATIVE); BILIRUBIN, URINE AUTO NEGATIVE (NEGATIVE); BLOOD, URINE BLOOD 1+ (NEGATIVE); COLOR, URINE YELLOW (YELLOW); GLUCOSE, URINE (UA) AUTO NEGATIVE (NEGATIVE); KETONE, URINE AUTO NEGATIVE (NEGATIVE); LEUKOCYTE ESTERASE, URINE AUTO 1+ (NEGATIVE); MUCUS, URINE SMALL (NEGATIVE); NITRITE, URINE AUTO NEGATIVE (NEGATIVE); PROTEIN, URINE AUTO NEGATIVE (NEGATIVE); RBC, URINE AUTO 8 /HPF (0-3); SPECIFIC GRAVITY URINE AUTO 1.028 (1.002-1.035); SQUAMOUS EPITHELIAL CELL UR AU 0 /HPF (0-6); TRANSITIONAL EPITHELIAL AUTO <1 /HPF; UROBILINOGEN, URINE AUTO 0.2 mg/dL (0.0-2.0); WBC, URINE AUTO 6 /HPF (0-3)
[2018-01-27] MEDS: NS 1,000 ML IV (04:23)
[2018-01-27] MEDS: MORPHINE 2 MG/ML 1ML SYRINGE (J2270) IV (04:24)
[2018-01-27] MEDS: KETOROLAC 30 MG/ML VIAL (J1885) IV (04:24)
[2018-01-27 04:29] LABS: BASO % 0.2 % (0.0-1.0); EOS # 0.1 10^3/uL (0.0-0.50); EOS % 1.7 % (0.0-3.0); HEMATOCRIT 39.8 % (42.0-52.0); HEMOGLOBIN 13.5 g/dl (13.5-17.5); IMMATURE GRANULOCYTE % 0.2 % (0-3.0); LYMPH # 1.8 10^3/uL (1.5-4.5); LYMPH % 33.5 % (24.0-44.0); MEAN CORPUSCULAR HEMOGLOBIN 32.1 pg (27.0-33.0); MEAN CORPUSCULAR HGB CONC 33.9 g/dl (32.0-36.5); MEAN CORPUSCULAR VOLUME 94.5 fl (80.0-96.0); MONO # 0.5 10^3/uL (0.0-0.8); MONO % 9.6 % (0.0-5.0); NEUTROPHILS # 2.9 10^3/uL (1.8-7.7); NEUTROPHILS % 54.8 % (36.0-66.0); PLATELET COUNT, AUTOMATED 165 10^3/uL (150-450); RED BLOOD COUNT 4.21 10^6/uL (4.30-6.10); WHITE BLOOD COUNT 5.3 10^3/uL (4.0-10.0)
== END 2018-01-27 06:13 | disposition home or self-care (01) ==
LOC: M ED 03:45
DX: N20.1 Calculus of ureter (principal); E11.9 Type 2 diabetes mellitus without complications; I10 Essential (primary) hypertension; E78.5 Hyperlipidemia, unspecified; K21.9 Gastro-esophageal reflux disease without esophagitis; Z87.442 Personal history of urinary calculi; Z86.718 Personal history of other venous thrombosis and embolism; Z86.711 Personal history of pulmonary embolism; Z98.84 Bariatric surgery status; Z88.8 Allergy status to other drugs, medicaments and biological substances; Z79.899 Other long term (current) drug therapy; Z79.01 Long term (current) use of anticoagulants; Z79.84 Long term (current) use of oral hypoglycemic drugs
CPT/HCPCS: J1885

== ENCOUNTER → 2018-03-05 | Outpatient (CLI) | payer OTHER | LOC: M SMT 08:58 | DX: N20.0 Calculus of kidney (principal) | CPT/HCPCS: 74018 ==

== ENCOUNTER → 2018-03-05 | Outpatient (REF) | payer OTHER, MEDICARE ==
[2018-03-05 13:37] LABS: APPEARANCE, URINE CLEAR (CLEAR); BACTERIA, URINE AUTO NEGATIVE (NEGATIVE); BILIRUBIN, URINE AUTO NEGATIVE (NEGATIVE); BLOOD, URINE BLOOD 1+ (NEGATIVE); COLOR, URINE YELLOW (YELLOW); GLUCOSE, URINE (UA) AUTO NEGATIVE (NEGATIVE); KETONE, URINE AUTO NEGATIVE (NEGATIVE); LEUKOCYTE ESTERASE, URINE AUTO NEGATIVE (NEGATIVE); NITRITE, URINE AUTO NEGATIVE (NEGATIVE); PROTEIN, URINE AUTO NEGATIVE (NEGATIVE); RBC, URINE AUTO 3 /HPF (0-3); SPECIFIC GRAVITY URINE AUTO 1.018 (1.002-1.035); SQUAMOUS EPITHELIAL CELL UR AU 0 /HPF (0-6); UROBILINOGEN, URINE AUTO 0.2 mg/dL (0.0-2.0); WBC, URINE AUTO 1 /HPF (0-3)
== END ==
LOC: M SMT 13:11
DX: N20.0 Calculus of kidney (principal)
CPT/HCPCS: 81001

== ENCOUNTER → 2018-03-12 | Outpatient (CLI) | payer OTHER | LOC: M RAD 08:38 | DX: N20.0 Calculus of kidney (principal) ==

== ENCOUNTER → 2018-03-20 | Outpatient (REF) | payer OTHER ==
[2018-03-20 18:39] LABS: APPEARANCE, URINE CLEAR (CLEAR); BACTERIA, URINE AUTO NEGATIVE (NEGATIVE); BILIRUBIN, URINE AUTO NEGATIVE (NEGATIVE); BLOOD, URINE BLOOD 2+ (NEGATIVE); COLOR, URINE YELLOW (YELLOW); GLUCOSE, URINE (UA) AUTO NEGATIVE (NEGATIVE); KETONE, URINE AUTO NEGATIVE (NEGATIVE); LEUKOCYTE ESTERASE, URINE AUTO NEGATIVE (NEGATIVE); MUCUS, URINE SMALL (NEGATIVE); NITRITE, URINE AUTO NEGATIVE (NEGATIVE); PROTEIN, URINE AUTO NEGATIVE (NEGATIVE); RBC, URINE AUTO 14 /HPF (0-3); SPECIFIC GRAVITY URINE AUTO 1.023 (1.002-1.035); SQUAMOUS EPITHELIAL CELL UR AU 0 /HPF (0-6); UROBILINOGEN, URINE AUTO 0.2 mg/dL (0.0-2.0); WBC, URINE AUTO 2 /HPF (0-3)
== END ==
LOC: M SMT 17:25
DX: N20.0 Calculus of kidney (principal)

== ENCOUNTER → 2018-03-28 | Outpatient (CLI) | payer OTHER | LOC: M RAD 14:57 | DX: N20.0 Calculus of kidney (principal) | CPT/HCPCS: 74176 ==

== ENCOUNTER 2018-03-29 15:02 | Emergency (ER) | payer OTHER ==
[2018-03-29 15:46] LABS: BASO % 0.2 % (0.0-1.0); EOS # 0.1 10^3/uL (0.0-0.50); HEMATOCRIT 38.6 % (42.0-52.0); IMMATURE GRANULOCYTE % 0.2 % (0-3.0); LYMPH # 1.5 10^3/uL (1.5-4.5); LYMPH % 24.9 % (24.0-44.0); MEAN CORPUSCULAR HEMOGLOBIN 32.2 pg (27.0-33.0); MEAN CORPUSCULAR HGB CONC 33.7 g/dl (32.0-36.5); MEAN CORPUSCULAR VOLUME 95.5 fl (80.0-96.0); MONO # 0.5 10^3/uL (0.0-0.8); MONO % 8.8 % (0.0-5.0); NEUTROPHILS # 3.9 10^3/uL (1.8-7.7); NEUTROPHILS % 63.9 % (36.0-66.0); PLATELET COUNT, AUTOMATED 188 10^3/uL (150-450); RED BLOOD COUNT 4.04 10^6/uL (4.30-6.10); RED CELL DISTRIBUTION WIDTH 12.9 % (11.5-14.5); WHITE BLOOD COUNT 6.2 10^3/uL (4.0-10.0)
[2018-03-29] MEDS: GI COCKTAIL 50ML BTL(HYOSCYAMINE/MAALOX/LIDOCAINE VISCOUS)(1:3:1) PO (15:55)
[2018-03-29 16:03] LABS: ALBUMIN 3.7 GM/DL (3.2-5.2); ALKALINE PHOSPHATASE 68 U/L (45-117); ALT/SGPT 20 U/L (12-78); ANION GAP 8 MEQ/L (8-16); AST/SGOT 17 U/L (7-37); BILIRUBIN,DIRECT < 0.1 MG/DL (0.0-0.2); BILIRUBIN,TOTAL 0.3 MG/DL (0.2-1.0); BLOOD UREA NITROGEN 16 MG/DL (7-18); CALCIUM LEVEL 8.6 MG/DL (8.8-10.2); CARBON DIOXIDE LEVEL 25 MEQ/L (21-32); CHLORIDE LEVEL 111 MEQ/L (98-107); CPK CREATINE PHOSPHOKINASE 180 U/L (39-308); CREATININE FOR GFR 0.87 MG/DL (0.70-1.30); FREE T4 1.04 NG/DL (0.76-1.46); GLOMERULAR FILTRATION RATE > 60.0 (>42); GLUCOSE, FASTING 128 MG/DL (70-100); LIPASE 96 U/L (73-393); MB/CK RELATIVE INDEX 1.44 (< OR =4); NT-PRO BNP 63 PG/ML (<125); SODIUM LEVEL 144 MEQ/L (136-145); TOTAL PROTEIN 7.4 GM/DL (6.4-8.2); TROPONIN I < 0.02 NG/ML (< 0.10)
[2018-03-29] MEDS ORDERED: ISOVUE-370 76% 100ML VIAL (Q9967) As Ordered (16:39)
[2018-03-29 20:50] LABS: CPK CREATINE PHOSPHOKINASE 157 U/L (39-308); MB/CK RELATIVE INDEX 1.27 (< OR =4); TROPONIN I < 0.02 NG/ML (< 0.10)
== END 2018-03-29 21:25 | disposition home or self-care (01) ==
LOC: M ED 15:02
DX: R07.9 Chest pain, unspecified (principal); R10.9 Unspecified abdominal pain; I50.9 Heart failure, unspecified; E11.9 Type 2 diabetes mellitus without complications; I10 Essential (primary) hypertension; Z86.711 Personal history of pulmonary embolism; Z86.718 Personal history of other venous thrombosis and embolism; G47.30 Sleep apnea, unspecified; N28.1 Cyst of kidney, acquired; N20.0 Calculus of kidney; Z79.84 Long term (current) use of oral hypoglycemic drugs; Z79.899 Other long term (current) drug therapy; Z88.8 Allergy status to other drugs, medicaments and biological substances
CPT/HCPCS: Q9967

== ENCOUNTER → 2018-05-12 | Outpatient (CLI) | payer OTHER ==
[2018-05-12 08:07] LABS: ANION GAP 6 MEQ/L (8-16); BLOOD UREA NITROGEN 15 MG/DL (7-18); CALCIUM LEVEL 8.4 MG/DL (8.8-10.2); CARBON DIOXIDE LEVEL 30 MEQ/L (21-32); CHLORIDE LEVEL 111 MEQ/L (98-107); CREATININE FOR GFR 0.78 MG/DL (0.70-1.30); GLOMERULAR FILTRATION RATE > 60.0 (>42); GLUCOSE, FASTING 116 MG/DL (70-100); POTASSIUM SERUM 4.6 MEQ/L (3.5-5.1); SODIUM LEVEL 147 MEQ/L (136-145)
== END ==
LOC: M LAB 06:44
DX: I50.32 Chronic diastolic (congestive) heart failure (principal)
CPT/HCPCS: 80048

== ENCOUNTER 2018-06-10 10:35 | Day surgery (SDC) | payer OTHER ==
[~2018-06-10] VITALS: Ht 182.9 cm; Wt 134.6 kg
[~2018-06-10 10:35] MED LIST changes: +CENT1TAB13 PO; +FLOM0.4C39 PO; +GLIP-162 PO; +INSULANT SC; +LISI-538 PO; +MINO100C63 PO; -MINO1CAP PO; +NS 1,000 ML IV ONE; +OMEP20CA3 PO; +PERC5TAB12 PO; +PROAAER10 INH; +PROP20TA72 PO; -PROP40TA PO; +PROP40TA62 PO; +TYLE650T35 PO; +ZOFR4TAB14 PO
[2018-06-10] MEDS ORDERED: PROPOFOL 200 MG/20 ML VIAL As Ordered ONE (11:33)
[2018-06-10] MEDS ORDERED: LIDOCAINE 2% INJ 100 MG/5 ML SDV (FOR ANES.) As Ordered ONE (11:33)
--- NOTE | 2018-06-10 11:49 | ROOR ---
Patient Name: Kyrie Cox Procedure Date: 06/10/2018 11:28 AM Date of : 1945 Age: 72 Room: [facility] Gender: Male Note Status: Finalized Procedure: Upper GI endoscopy Indications: Gastro-esophageal reflux disease Providers: Kyrie TRAN MD Referring MD: Michelle DA SILVA MD Requesting Provider: Medicines: Monitored Anesthesia Care Complications: No immediate complications. Procedure: Pre-Anesthesia Assessment: - The heart rate, respiratory rate, oxygen saturations, blood pressure, adequacy of pulmonary ventilation, and response to care were monitored throughout the procedure. The Endoscope was introduced through the mouth, and advanced to the jejunum. The upper GI endoscopy was accomplished without difficulty. The patient tolerated the procedure well. Findings: The examined esophagus was normal. 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 A gastric pouch with a normal size was found. The staple line appeared intact. The gastrojejunal anastomosis was characterized by healthy appearing mucosa. This was traversed. The exam of the stomach was otherwise normal. The examined jejunum was normal. Impression: - Normal esophagus. - Gastric bypass with a normal-sized pouch. Gastrojejunal anastomosis is widely patent and characterized by healthy appearing mucosa. - Normal examined jejunum. - No specimens collected. Recommendation: - Continue present medications. - Follow an antireflux regimen. - Observe patient's clinical course. Kyrie Tran MD Kyrie TRAN MD 06/10/2018 11:49:23 AM This report has been signed electronically. Number of Addenda: 0 Note Initiated On: 06/10/2018 11:28 AM Estimated Blood Loss: Estimated blood loss: none.
[2018-06-10 12:15] VITALS: BP 141/87
== END 2018-06-10 12:23 | disposition home or self-care (01) ==
LOC: M OPP 10:35
PROVIDERS: ATTEND Internal Medicine Gastroenterology
DX: K21.9 Gastro-esophageal reflux disease without esophagitis (principal); Z98.84 Bariatric surgery status

== ENCOUNTER → 2018-07-15 | Outpatient (REF) | payer OTHER ==
[~2018-07-15] MED LIST changes: -NS 1,000 ML IV ONE
== END ==
LOC: M SMT 17:16
PROVIDERS: ATTEND Urology Pediatric Urology
DX: R39.9 Unspecified symptoms and signs involving the genitourinary system (principal)

== ENCOUNTER → 2018-07-24 | Outpatient (CLI) | payer OTHER ==
[2018-07-26 00:06] LABS: PSA TOTAL 0.5 ng/mL (0.0-4.0)
== END ==
LOC: M SMT 11:16
PROVIDERS: ATTEND Urology Pediatric Urology
DX: Z12.5 Encounter for screening for malignant neoplasm of prostate (principal)

== ENCOUNTER → 2018-08-01 | Outpatient (REF) | payer OTHER ==
[2018-08-01 13:22] LABS: APPEARANCE, URINE CLEAR (CLEAR); BACTERIA, URINE AUTO NEGATIVE (NEGATIVE); BILIRUBIN, URINE AUTO NEGATIVE (NEGATIVE); BLOOD, URINE BLOOD 1+ (NEGATIVE); COLOR, URINE YELLOW (YELLOW); GLUCOSE, URINE (UA) AUTO NEGATIVE (NEGATIVE); KETONE, URINE AUTO NEGATIVE (NEGATIVE); LEUKOCYTE ESTERASE, URINE AUTO TRACE (NEGATIVE); MUCUS, URINE SMALL (NEGATIVE); NITRITE, URINE AUTO NEGATIVE (NEGATIVE); PROTEIN, URINE AUTO NEGATIVE (NEGATIVE); RBC, URINE AUTO 10 /HPF (0-3); SPECIFIC GRAVITY URINE AUTO 1.023 (1.002-1.035); SQUAMOUS EPITHELIAL CELL UR AU 0 /HPF (0-6); UROBILINOGEN, URINE AUTO 0.2 mg/dL (0.0-2.0); WBC, URINE AUTO 4 /HPF (0-3)
== END ==
LOC: M SMT 13:01
PROVIDERS: ATTEND Urology Pediatric Urology
DX: Z01.818 Encounter for other preprocedural examination (principal); N40.0 Benign prostatic hyperplasia without lower urinary tract symptoms
CPT/HCPCS: 81001; 87086; G0463

== ENCOUNTER → 2018-09-10 | Outpatient (REF) | payer OTHER ==
[2018-09-10 12:54] LABS: FOLATE 18.8 NG/ML
== END ==
LOC: M LAB REF 12:17
PROVIDERS: ATTEND Internal Medicine
DX: Z98.84 Bariatric surgery status (principal)

== ENCOUNTER → 2018-12-22 | Outpatient (REF) | payer OTHER ==
[~2018-12-22] MED LIST changes: -ASPI81CH32 PO; +ASPI81CH33 PO; -D 501TAB PO; +VITA100018 PO; -VITA100072 PO; +VITA500030 PO
== END ==
LOC: M LAB REF 12:25
PROVIDERS: ATTEND Internal Medicine
DX: Z98.84 Bariatric surgery status (principal)

== ENCOUNTER → 2019-02-25 | Outpatient (REF) | payer OTHER ==
[~2019-02-25] MED LIST changes: -OMEP20CA3 PO; +OMEP20CA4 PO
[2019-02-25 13:04] LABS: APPEARANCE, URINE CLEAR (CLEAR); BACTERIA, URINE AUTO NEGATIVE (NEGATIVE); BILIRUBIN, URINE AUTO NEGATIVE (NEGATIVE); BLOOD, URINE BLOOD NEGATIVE (NEGATIVE); COLOR, URINE YELLOW (YELLOW); GLUCOSE, URINE (UA) AUTO NEGATIVE (NEGATIVE); KETONE, URINE AUTO NEGATIVE (NEGATIVE); LEUKOCYTE ESTERASE, URINE AUTO NEGATIVE (NEGATIVE); MUCUS, URINE SMALL (NEGATIVE); NITRITE, URINE AUTO NEGATIVE (NEGATIVE); PROTEIN, URINE AUTO NEGATIVE (NEGATIVE); RBC, URINE AUTO 2 /HPF (0-3); SPECIFIC GRAVITY URINE AUTO 1.019 (1.002-1.035); SQUAMOUS EPITHELIAL CELL UR AU 0 /HPF (0-6); UROBILINOGEN, URINE AUTO 0.2 mg/dL (0.0-2.0); WBC, URINE AUTO 1 /HPF (0-3)
== END ==
LOC: M LAB REF 12:19
PROVIDERS: ATTEND Physician Assistant Medical
DX: N39.0 Urinary tract infection, site not specified (principal)

== ENCOUNTER → 2019-03-04 | Outpatient (CLI) | payer OTHER ==
[2019-03-04 10:00] LABS: BLOOD UREA NITROGEN 19 MG/DL (7-18); CALCIUM LEVEL 8.9 MG/DL (8.8-10.2); CARBON DIOXIDE LEVEL 30 MEQ/L (21-32); CHLORIDE LEVEL 107 MEQ/L (98-107); GLOMERULAR FILTRATION RATE > 60.0 (>42); GLUCOSE, FASTING 177 MG/DL (70-100); POTASSIUM SERUM 4.4 MEQ/L (3.5-5.1); SODIUM LEVEL 143 MEQ/L (136-145)
== END ==
LOC: M LAB 08:38
PROVIDERS: ATTEND Physician Assistant
DX: I50.32 Chronic diastolic (congestive) heart failure (principal)

== ENCOUNTER → 2019-03-30 | Outpatient (REF) | payer OTHER ==
[~2019-03-30] MED LIST changes: +OMEP1CAP73 PO; -OMEP20CA4 PO
== END ==
LOC: M LAB REF 12:35
PROVIDERS: ATTEND Internal Medicine
DX: Z98.84 Bariatric surgery status (principal)

== ENCOUNTER → 2019-07-03 | Outpatient (REF) | payer OTHER ==
[~2019-07-03] MED LIST changes: +OMEP-172 PO; -OMEP1CAP73 PO
== END ==
LOC: M LAB REF 14:09
PROVIDERS: ATTEND Internal Medicine
DX: Z98.84 Bariatric surgery status (principal)

== ENCOUNTER → 2019-10-30 | Outpatient (REF) | payer OTHER ==
[~2019-10-30] MED LIST changes: -OMEP-172 PO; +OMEP1CAP73 PO
== END ==
LOC: M LAB REF 11:24
PROVIDERS: ATTEND Internal Medicine
DX: Z98.84 Bariatric surgery status (principal)

== ENCOUNTER → 2019-11-26 | Outpatient (REF) | payer OTHER ==
[2019-11-26 20:55] LABS: MALB URINE SIEMENS 13.6 MG/L
== END ==
LOC: M LAB REF 15:44
PROVIDERS: ATTEND Nurse Practitioner Family
DX: E11.9 Type 2 diabetes mellitus without complications (principal)

== ENCOUNTER → 2020-01-21 | Outpatient (CLI) | payer OTHER ==
[~2020-01-21] MED LIST changes: +ACET650T61 PO; -METF-699 PO; +METF-817 PO; -TYLE650T35 PO
[2020-01-21 11:38] LABS: BLOOD UREA NITROGEN 19 MG/DL (7-18); CALCIUM LEVEL 8.7 MG/DL (8.8-10.2); CARBON DIOXIDE LEVEL 28 MEQ/L (21-32); CHLORIDE LEVEL 110 MEQ/L (98-107); CREATININE FOR GFR 0.93 MG/DL (0.70-1.30); GLOMERULAR FILTRATION RATE > 60.0 (>42); GLUCOSE, FASTING 174 MG/DL (70-100); POTASSIUM SERUM 4.3 MEQ/L (3.5-5.1); SODIUM LEVEL 141 MEQ/L (136-145)
== END ==
LOC: M LAB 10:41
PROVIDERS: ATTEND Nurse Practitioner Family
DX: R31.0 Gross hematuria (principal)

== ENCOUNTER → 2020-07-11 | Outpatient (CLI) | payer OTHER ==
[2020-07-11 08:27] LABS: BLOOD UREA NITROGEN 20 MG/DL (7-18); CALCIUM LEVEL 8.5 MG/DL (8.8-10.2); CARBON DIOXIDE LEVEL 29 MEQ/L (21-32); CHLORIDE LEVEL 107 MEQ/L (98-107); CREATININE FOR GFR 0.98 MG/DL (0.70-1.30); GLOMERULAR FILTRATION RATE > 60.0 (>42); GLUCOSE, FASTING 166 MG/DL (70-100); POTASSIUM SERUM 4.4 MEQ/L (3.5-5.1); SODIUM LEVEL 143 MEQ/L (136-145)
== END ==
LOC: M LAB 06:55
PROVIDERS: ATTEND Physician Assistant
DX: I50.32 Chronic diastolic (congestive) heart failure (principal)

== ENCOUNTER → 2020-09-26 | Outpatient (CLI) | payer OTHER ==
[~2020-09-26] MED LIST changes: -LISI-538 PO; +LISI20TA33 PO
[2020-09-26 07:56] LABS: BLOOD UREA NITROGEN 22 MG/DL (7-18); CALCIUM LEVEL 8.8 MG/DL (8.8-10.2); CARBON DIOXIDE LEVEL 28 MEQ/L (21-32); CHLORIDE LEVEL 110 MEQ/L (98-107); CREATININE FOR GFR 0.87 MG/DL (0.70-1.30); GLOMERULAR FILTRATION RATE > 60.0 (>42); GLUCOSE, FASTING 177 MG/DL (70-100); MAGNESIUM LEVEL 2.3 MG/DL (1.8-2.4); POTASSIUM SERUM 4.4 MEQ/L (3.5-5.1); SODIUM LEVEL 143 MEQ/L (136-145)
== END ==
LOC: M LAB 06:49
PROVIDERS: ATTEND Physician Assistant
DX: I50.32 Chronic diastolic (congestive) heart failure (principal)

== ENCOUNTER → 2020-09-26 | Outpatient (CLI) | payer OTHER ==
[2020-09-26 07:56] LABS: BLOOD UREA NITROGEN 22 MG/DL (7-18); CALCIUM LEVEL 8.8 MG/DL (8.8-10.2); CARBON DIOXIDE LEVEL 28 MEQ/L (21-32); CHLORIDE LEVEL 111 MEQ/L (98-107); CREATININE FOR GFR 0.86 MG/DL (0.70-1.30); GLOMERULAR FILTRATION RATE > 60.0 (>42); GLUCOSE, FASTING 180 MG/DL (70-100); POTASSIUM SERUM 4.3 MEQ/L (3.5-5.1); SODIUM LEVEL 142 MEQ/L (136-145)
== END ==
LOC: M LAB 06:47
PROVIDERS: ATTEND Nurse Practitioner Family
DX: E11.9 Type 2 diabetes mellitus without complications (principal)

== ENCOUNTER → 2020-11-21 | Outpatient (REF) | payer OTHER ==
[2020-11-21 13:27] LABS: FERRITIN 45 NG/ML (26-388); URIC ACID 4.2 MG/DL (3.5-7.2)
[2020-11-21 13:42] LABS: VITAMIN B12 LEVEL 586 PG/ML
[2020-11-21 13:43] LABS: FOLATE > 24.0 NG/ML
== END ==
LOC: M LAB REF 11:40
PROVIDERS: ATTEND Internal Medicine
DX: M10.9 Gout, unspecified (principal); Z98.84 Bariatric surgery status

== ENCOUNTER → 2020-11-30 | Outpatient (REF) | payer OTHER ==
[2020-11-30 18:14] LABS: CREATININE, URINE 82.1 MG/DL; MALB URINE SIEMENS 9.7 MG/L; MAU/CREAT RATIO 11.8 MCG/MG (0.0-30.0)
== END ==
LOC: M LAB REF 17:20
PROVIDERS: ATTEND Nurse Practitioner Family
DX: E11.9 Type 2 diabetes mellitus without complications (principal)

== ENCOUNTER → 2021-01-02 | Outpatient (CLI) | payer OTHER ==
[2021-01-02 07:54] LABS: BLOOD UREA NITROGEN 18 MG/DL (7-18); CALCIUM LEVEL 8.9 MG/DL (8.8-10.2); CARBON DIOXIDE LEVEL 29 MEQ/L (21-32); CHLORIDE LEVEL 108 MEQ/L (98-107); CREATININE FOR GFR 0.89 MG/DL (0.70-1.30); GLOMERULAR FILTRATION RATE > 60.0 (>42); GLUCOSE, FASTING 132 MG/DL (70-100); POTASSIUM SERUM 4.6 MEQ/L (3.5-5.1); SODIUM LEVEL 143 MEQ/L (136-145)
== END ==
LOC: M LAB 06:50
PROVIDERS: ATTEND Nurse Practitioner Family
DX: E11.9 Type 2 diabetes mellitus without complications (principal)

== ENCOUNTER → 2021-01-30 | Outpatient (CLI) | payer OTHER ==
[2021-01-30 08:29] LABS: BLOOD UREA NITROGEN 21 MG/DL (7-18); CALCIUM LEVEL 8.6 MG/DL (8.8-10.2); CARBON DIOXIDE LEVEL 29 MEQ/L (21-32); CHLORIDE LEVEL 110 MEQ/L (98-107); CREATININE FOR GFR 0.84 MG/DL (0.70-1.30); GLOMERULAR FILTRATION RATE > 60.0 (>42); GLUCOSE, FASTING 156 MG/DL (70-100); POTASSIUM SERUM 4.8 MEQ/L (3.5-5.1); SODIUM LEVEL 144 MEQ/L (136-145)
== END ==
LOC: M LAB 07:16
PROVIDERS: ATTEND Physician Assistant
DX: I50.32 Chronic diastolic (congestive) heart failure (principal)

== ENCOUNTER → 2021-05-03 | Outpatient (CLI) | payer OTHER ==
[2021-05-03 09:44] LABS: BLOOD UREA NITROGEN 22 MG/DL (7-18); CARBON DIOXIDE LEVEL 28 MEQ/L (21-32); CHLORIDE LEVEL 107 MEQ/L (98-107); GLOMERULAR FILTRATION RATE > 60.0 (>42); GLUCOSE, FASTING 160 MG/DL (70-100); POTASSIUM SERUM 4.4 MEQ/L (3.5-5.1); SODIUM LEVEL 141 MEQ/L (136-145)
== END ==
LOC: M LAB 08:35
PROVIDERS: ATTEND Physician Assistant
DX: I50.32 Chronic diastolic (congestive) heart failure (principal)

== ENCOUNTER → 2021-08-07 | Outpatient (CLI) | payer OTHER ==
[2021-08-07 08:14] LABS: BLOOD UREA NITROGEN 23 MG/DL (7-18); CALCIUM LEVEL 8.7 MG/DL (8.8-10.2); CARBON DIOXIDE LEVEL 28 MEQ/L (21-32); CHLORIDE LEVEL 110 MEQ/L (98-107); GLOMERULAR FILTRATION RATE > 60.0 (>42); GLUCOSE, FASTING 112 MG/DL (70-100); POTASSIUM SERUM 4.3 MEQ/L (3.5-5.1); SODIUM LEVEL 143 MEQ/L (136-145)
== END ==
LOC: M LAB 07:11
PROVIDERS: ATTEND Physician Assistant
DX: I50.32 Chronic diastolic (congestive) heart failure (principal)

== ENCOUNTER → 2021-11-02 | Outpatient (CLI) | payer OTHER ==
[2021-11-02 08:45] LABS: BLOOD UREA NITROGEN 24 MG/DL (7-18); CALCIUM LEVEL 9.7 MG/DL (8.8-10.2); CARBON DIOXIDE LEVEL 27 MEQ/L (21-32); CHLORIDE LEVEL 110 MEQ/L (98-107); CREATININE FOR GFR 0.85 MG/DL (0.70-1.30); GLOMERULAR FILTRATION RATE > 60.0 (>42); GLUCOSE, FASTING 158 MG/DL (70-100); POTASSIUM SERUM 4.4 MEQ/L (3.5-5.1); SODIUM LEVEL 142 MEQ/L (136-145)
== END ==
LOC: M LAB 07:39
PROVIDERS: ATTEND Physician Assistant
DX: I50.32 Chronic diastolic (congestive) heart failure (principal)

== ENCOUNTER → 2021-12-01 | Outpatient (REF) | payer OTHER ==
[2021-12-01 18:54] LABS: CREATININE, URINE 67.8 MG/DL; MALB URINE SIEMENS 7.3 MG/L; MAU/CREAT RATIO 10.7 MCG/MG (0.0-30.0)
== END ==
LOC: M LAB REF 16:54
PROVIDERS: ATTEND Nurse Practitioner Family
DX: E11.9 Type 2 diabetes mellitus without complications (principal)

== ENCOUNTER → 2022-01-22 | Outpatient (REF) | payer OTHER ==
[2022-01-22 12:58] LABS: FERRITIN 126 NG/ML (26-388); URIC ACID 4.8 MG/DL (3.5-7.2)
[2022-01-22 14:09] LABS: VITAMIN B12 LEVEL 842 PG/ML
[2022-01-22 14:10] LABS: FOLATE > 24.0 NG/ML
== END ==
LOC: M LAB REF 11:33
PROVIDERS: ATTEND Internal Medicine
DX: M10.9 Gout, unspecified (principal); Z98.84 Bariatric surgery status

== ENCOUNTER → 2022-03-18 | Outpatient (CLI) | payer OTHER ==
[~2022-03-18] MED LIST changes: +CARV6.25 PO; +HUMA100I5; +JARD1TAB3 PO; +OXYB15TA14 PO; +ROSU5TAB5 PO; +SPIR-10 PO; +TORS10TA3 PO; +VITA100093 PO; +VITMTA PO
== END ==
LOC: M LABSMTC 11:06
PROVIDERS: ATTEND Anesthesiology
DX: Z01.812 Encounter for preprocedural laboratory examination (principal); Z11.52 Encounter for screening for COVID-19

== ENCOUNTER → 2022-04-19 | Outpatient (CLI) | payer OTHER | LOC: M LABSMTC 11:44 | PROVIDERS: ATTEND Anesthesiology | DX: Z01.812 Encounter for preprocedural laboratory examination (principal); Z11.52 Encounter for screening for COVID-19 ==

== ENCOUNTER 2022-04-24 07:25 | Day surgery (SDC) | payer OTHER ==
[~2022-04-24] VITALS: Ht 180.3 cm; Wt 135.2 kg
[2022-04-24] MEDS: FLEET ENEMA PR PRN ×2 (08:35→08:37)
[2022-04-24] MEDS ORDERED: propofoL 200 MG/20 ML VIAL As Ordered ONE (08:35)
[2022-04-24] MEDS ORDERED: LIDOCAINE 2% 100MG/5ML SDV (FOR ANES.) As Ordered ONE (08:35)
[2022-04-24 11:50] VITALS: BP 131/75
== END 2022-04-24 11:51 | disposition home or self-care (01) ==
LOC: M OPP 07:25
PROVIDERS: ATTEND Surgery
DX: Z12.11 Encounter for screening for malignant neoplasm of colon (principal); Q43.8 Other specified congenital malformations of intestine; Z79.01 Long term (current) use of anticoagulants; Z79.02 Long term (current) use of antithrombotics/antiplatelets; Z79.4 Long term (current) use of insulin; Z79.899 Other long term (current) drug therapy; E11.9 Type 2 diabetes mellitus without complications; E78.5 Hyperlipidemia, unspecified; I11.0 Hypertensive heart disease with heart failure; I50.9 Heart failure, unspecified; G47.33 Obstructive sleep apnea (adult) (pediatric); Z99.89 Dependence on other enabling machines and devices; M10.9 Gout, unspecified; G25.0 Essential tremor; Z87.442 Personal history of urinary calculi; Z86.711 Personal history of pulmonary embolism; Z88.8 Allergy status to other drugs, medicaments and biological substances

== ENCOUNTER → 2022-05-28 | Outpatient (CLI) | payer OTHER ==
[2022-05-28 09:31] LABS: CHLORIDE LEVEL 108 MMOL/L (98-107); POTASSIUM SERUM 4.4 MMOL/L (3.5-5.1); SODIUM LEVEL 144 MMOL/L (136-145)
[2022-05-28 09:32] LABS: CARBON DIOXIDE LEVEL 27 MMOL/L (20-31)
[2022-05-28 09:38] LABS: BLOOD UREA NITROGEN 21 MG/DL (9-23); CALCIUM LEVEL 8.5 MG/DL (8.3-10.6); GLUCOSE, FASTING 129 MG/DL (74-106)
[2022-05-28 09:40] LABS: CREATININE FOR GFR 0.75 MG/DL (0.70-1.30); GLOMERULAR FILTRATION RATE > 60.0 (>42)
== END ==
LOC: M LAB 07:52
PROVIDERS: ATTEND Physician Assistant
DX: I50.32 Chronic diastolic (congestive) heart failure (principal)

== ENCOUNTER → 2022-06-08 | Outpatient (REF) | payer OTHER ==
[2022-06-08 19:05] LABS: APPEARANCE, URINE MANUAL CLEAR (CLEAR); COLOR, URINE MANUAL YELLOW (YELLOW)
[2022-06-08 19:06] LABS: BILIRUBIN, URINE MANUAL NEGATIVE (NEGATIVE); BLOOD URINE MANUAL NEGATIVE (NEGATIVE); GLUCOSE, URINE (UA) MANUAL 4+(1000 MG/DL) mg/dL (NEGATIVE); KETONE, URINE MANUAL NEGATIVE (NEGATIVE); LEUKOCYTE ESTERASE, URINE MAN NEGATIVE (NEGATIVE); NITRITE, URINE MANUAL NEGATIVE (NEGATIVE); PROTEIN, URINE MANUAL NEGATIVE (NEGATIVE); UROBILINOGEN, URINE MANUAL NORMAL (NORMAL)
== END ==
LOC: M SMT 16:47
PROVIDERS: ATTEND Nurse Practitioner Women's Health
DX: N40.0 Benign prostatic hyperplasia without lower urinary tract symptoms (principal)

== ENCOUNTER → 2022-06-12 | Outpatient (CLI) | payer OTHER | LOC: M LAB 11:38 | PROVIDERS: ATTEND Nurse Practitioner Women's Health | DX: Z12.5 Encounter for screening for malignant neoplasm of prostate (principal) | CPT/HCPCS: 36415; G0103 ==

== ENCOUNTER → 2022-09-17 | Outpatient (CLI) | payer OTHER, MEDICARE | LOC: M RAD 08:45 | PROVIDERS: ATTEND Physician Assistant | DX: M19.012 Primary osteoarthritis, left shoulder (principal) ==

== ENCOUNTER → 2022-11-15 | Outpatient (CLI) | payer OTHER, MEDICARE | LOC: M PLAIMG 12:22 | PROVIDERS: ATTEND Orthopaedic Surgery | DX: M47.894 Other spondylosis, thoracic region (principal); M54.12 Radiculopathy, cervical region ==

== ENCOUNTER → 2022-12-28 | Outpatient (REF) | payer OTHER, MEDICARE ==
[2022-12-28 13:21] LABS: INR 0.93; PROTHROMBIN TIME 12.7 SECONDS (12.5-14.5)
[2022-12-28 13:29] LABS: IRON (FE) 111 UG/DL (65-175)
[2022-12-28 13:30] LABS: PERCENT SATURATION 30.4 % (19.7-50.0); TOTAL IRON BINDING CAPACITY 365 UG/DL (250-425)
[2022-12-28 13:32] LABS: IMMUNOGLOBULIN A 191.8 MG/DL (40-350)
[2022-12-28 13:45] LABS: HEPATITIS B SURFACE ANTIGEN NEGATIVE (NEGATIVE)
[2022-12-28 14:06] LABS: HEPATITIS B CORE ANTIBODY IGM NEGATIVE (NEGATIVE); HEPATITIS C VIRUS ABY INDEX 0.08 INDEX (<0.8)
[2023-01-02 13:07] LABS: AFP TUMOR TOTAL 1.4 ng/mL (0.0-8.4); ALPHA 1 ANTITRYPSIN 112 mg/dL (101-187); ANCA-ATYPICAL <1:20 titer (Neg:<1:20); ANTI-MITOCHONDRIAL ANTIBODY <20.0 Units (0.0-20.0); ANTINUCLEAR ANTIBODIES DIRECT Negative (Negative); CERULOPLASMIN 21.8 mg/dL (16.0-31.0); CYTOPLASMIC NEUTROP AB ANCA-C <1:20 titer (Neg:<1:20); LIVER-KIDNEY MICROSOMAL ABY <20.1 Units (0.0-20.0); PERINUCLEAR AB ANCA-P <1:20 titer (Neg:<1:20); TISSUE TRANSGLUTAMINASE IgA <2 U/mL (0-3)
== END ==
LOC: M LAB REF 12:36
PROVIDERS: ATTEND Internal Medicine
DX: M10.9 Gout, unspecified (principal); K74.02 Hepatic fibrosis, advanced fibrosis

== ENCOUNTER → 2023-01-15 | Outpatient (CLI) | payer OTHER, MEDICARE | LOC: M RAD 07:47 | PROVIDERS: ATTEND Internal Medicine Gastroenterology | DX: K74.02 Hepatic fibrosis, advanced fibrosis (principal) ==

== ENCOUNTER 2023-02-25 12:47 | Day surgery (SDC) | payer OTHER, MEDICARE ==
[~2023-02-25] VITALS: Ht 180.3 cm; Wt 136.6 kg
[~2023-02-25 12:47] MED LIST changes: +MAGN400C PO; +NS 1,000 ML IV ONE; +TIZA10TA PO
[2023-02-25] MEDS ORDERED: propofoL 200 MG/20 ML VIAL As Ordered ONE (14:16)
[2023-02-25] MEDS ORDERED: GLYCOPYRROLATE INJ 0.2 MG/ML 2 ML VIAL As Ordered ONE (14:16)
[2023-02-25] MEDS ORDERED: LIDOCAINE 2% 100MG/5ML SDV (FOR ANES.) As Ordered ONE (14:16)
[2023-02-25 14:49] VITALS: BP 133/64; TEMP 97.2; O2SAT 96
== END 2023-02-25 14:40 | disposition home or self-care (01) ==
LOC: M OPP 12:47
PROVIDERS: ATTEND Internal Medicine Gastroenterology
DX: K74.60 Unspecified cirrhosis of liver (principal); Z98.0 Intestinal bypass and anastomosis status; Z79.02 Long term (current) use of antithrombotics/antiplatelets; Z79.4 Long term (current) use of insulin; Z79.83 Long term (current) use of bisphosphonates; Z79.899 Other long term (current) drug therapy; Z88.8 Allergy status to other drugs, medicaments and biological substances

== ENCOUNTER → 2023-04-05 | Outpatient (REF) | payer OTHER, MEDICARE ==
[~2023-04-05] MED LIST changes: -NS 1,000 ML IV ONE
[2023-04-05 17:18] LABS: VITAMIN B12 LEVEL 485 PG/ML (211-911)
[2023-04-05 17:20] LABS: FOLATE > 24.0 NG/ML (>5.4)
== END ==
LOC: M LAB REF 16:25
PROVIDERS: ATTEND Internal Medicine
DX: Z98.84 Bariatric surgery status (principal)

== ENCOUNTER → 2023-07-17 | Outpatient (CLI) | payer MEDICARE, OTHER | LOC: M RAD 08:14 | PROVIDERS: ATTEND Internal Medicine | DX: K76.89 Other specified diseases of liver (principal); R16.0 Hepatomegaly, not elsewhere classified ==

== ENCOUNTER → 2023-07-17 | Outpatient (CLI) | payer OTHER, MEDICARE | LOC: M RAD 08:20 | PROVIDERS: ATTEND Physician Assistant | DX: Z87.442 Personal history of urinary calculi (principal) ==

== ENCOUNTER → 2023-10-10 | Outpatient (REF) | payer OTHER, MEDICARE | LOC: M LAB REF 12:03 | PROVIDERS: ATTEND Internal Medicine | DX: K74.02 Hepatic fibrosis, advanced fibrosis (principal) ==

== ENCOUNTER → 2024-02-13 | Outpatient (CLI) | payer OTHER, MEDICARE ==
[~2024-02-13] MED LIST changes: +ROSU5TAB40 PO; -ROSU5TAB5 PO
== END ==
LOC: M RAD 14:55
PROVIDERS: ATTEND Physician Assistant
DX: M17.11 Unilateral primary osteoarthritis, right knee (principal); M25.561 Pain in right knee

== ENCOUNTER → 2024-02-28 | Outpatient (REF) | payer OTHER, MEDICARE ==
[2024-02-28 13:54] LABS: RSV AMPLIFICATION NEGATIVE (NEGATIVE)
== END ==
LOC: M LAB REF 12:44
PROVIDERS: ATTEND Physician Assistant
DX: B34.9 Viral infection, unspecified (principal)

== ENCOUNTER → 2024-03-30 | Outpatient (CLI) | payer OTHER, MEDICARE | LOC: M RAD 12:25 | PROVIDERS: ATTEND Physician Assistant | DX: M17.11 Unilateral primary osteoarthritis, right knee (principal); M94.261 Chondromalacia, right knee ==

== ENCOUNTER → 2024-04-16 | Outpatient (REF) | payer OTHER, MEDICARE ==
[2024-04-16 18:08] LABS: APPEARANCE, URINE CLEAR (CLEAR); BACTERIA, URINE AUTO NEGATIVE (NEGATIVE); BILIRUBIN, URINE AUTO NEGATIVE (NEGATIVE); BLOOD, URINE BLOOD NEGATIVE (NEGATIVE); COLOR, URINE YELLOW (YELLOW); GLUCOSE, URINE (UA) AUTO 3+ mg/dL (NEGATIVE); KETONE, URINE AUTO NEGATIVE (NEGATIVE); LEUKOCYTE ESTERASE, URINE AUTO NEGATIVE (NEGATIVE); NITRITE, URINE AUTO NEGATIVE (NEGATIVE); PROTEIN, URINE AUTO NEGATIVE (NEGATIVE); RBC, URINE AUTO 1 /HPF (0-3); SPECIFIC GRAVITY URINE AUTO 1.024 (1.002-1.035); SQUAMOUS EPITHELIAL CELL UR AU 0 /HPF (0-6); UROBILINOGEN, URINE AUTO 0.2 mg/dL (0.0-2.0); WBC, URINE AUTO 1 /HPF (0-3)
== END ==
LOC: M SMT 17:27
PROVIDERS: ATTEND Physician Assistant
DX: N39.41 Urge incontinence (principal)

== ENCOUNTER → 2024-05-08 | Outpatient (REF) | payer OTHER, MEDICARE ==
[~2024-05-08] MED LIST changes: +METF-1156 PO; -METF-817 PO; -ROSU5TAB40 PO; +ROSU5TAB49 PO
[2024-05-08 12:44] LABS: FERRITIN 48.5 NG/ML (10.5-307.3); VITAMIN B12 LEVEL 744 PG/ML (211-911)
[2024-05-08 12:57] LABS: FOLATE > 24.0 NG/ML (>5.4)
== END ==
LOC: M LAB REF 11:59
PROVIDERS: ATTEND Internal Medicine
DX: Z98.84 Bariatric surgery status (principal)

== ENCOUNTER → 2024-09-02 | Outpatient (CLI) | payer OTHER, MEDICARE | LOC: M RAD 07:11 | PROVIDERS: ATTEND Internal Medicine Gastroenterology | DX: K74.60 Unspecified cirrhosis of liver (principal); K76.0 Fatty (change of) liver, not elsewhere classified; R16.0 Hepatomegaly, not elsewhere classified; N20.0 Calculus of kidney ==

== ENCOUNTER → 2024-09-17 | Outpatient (CLI) | payer MEDICARE, OTHER ==
[~2024-09-17] MED LIST changes: +MIRA3350 PO; +THERTAB52 PO; +VIBE75TA PO; +XARE10TA PO
[2024-09-17 08:50] LABS: ALBUMIN 3.7 G/DL (3.2-5.2); ALKALINE PHOSPHATASE 68 U/L (40-129); ALT/SGPT 16 U/L (7.0-40); AST/SGOT 10 U/L (<34); BILIRUBIN,DIRECT 0.1 MG/DL (<0.4); BILIRUBIN,TOTAL 0.4 MG/DL (0.3-1.2); TOTAL PROTEIN 6.9 G/DL (5.7-8.2)
== END ==
LOC: M LAB 07:38
PROVIDERS: ATTEND Internal Medicine Gastroenterology
DX: K74.60 Unspecified cirrhosis of liver (principal)

== ENCOUNTER → 2024-09-23 | Outpatient (CLI) | payer OTHER | LOC: M RAD 13:05 | PROVIDERS: ATTEND Physician Assistant | DX: M25.562 Pain in left knee (principal) ==

== ENCOUNTER 2024-10-01 08:44 | Day surgery (SDC) | payer OTHER, MEDICARE ==
[~2024-10-01] VITALS: Ht 172.7 cm; Wt 142.9 kg
[2024-10-01] MEDS ORDERED: fentaNYL 100 MCG/2 ML INJECTION As Ordered ONE (09:39)
[2024-10-01] MEDS ORDERED: LIDOCAINE 2% 100MG/5ML SDV (FOR ANES.) As Ordered ONE (10:00)
[2024-10-01] MEDS ORDERED: propofoL 200 MG/20 ML VIAL As Ordered ONE (10:00)
[2024-10-01 10:04] VITALS: TEMP 97.7
[2024-10-01 10:20] VITALS: BP 130/63; O2SAT 94
== END 2024-10-01 10:34 | disposition home or self-care (01) ==
LOC: M OPP 08:44
PROVIDERS: ATTEND Internal Medicine Gastroenterology
DX: K74.60 Unspecified cirrhosis of liver (principal); Z98.84 Bariatric surgery status; Z79.01 Long term (current) use of anticoagulants; G47.30 Sleep apnea, unspecified; I50.9 Heart failure, unspecified; Z88.8 Allergy status to other drugs, medicaments and biological substances; Z79.4 Long term (current) use of insulin; Z79.84 Long term (current) use of oral hypoglycemic drugs; Z79.899 Other long term (current) drug therapy; I51.7 Cardiomegaly; Z86.718 Personal history of other venous thrombosis and embolism
CPT/HCPCS: 43235; J3010

== ENCOUNTER → 2024-10-07 | Outpatient (CLI) | payer OTHER, MEDICARE | LOC: M RAD 08:34 | PROVIDERS: ATTEND Physician Assistant | DX: N20.0 Calculus of kidney (principal) ==

== ENCOUNTER → 2024-10-22 | Outpatient (CLI) | payer OTHER, MEDICARE ==
[~2024-10-22] MED LIST changes: -FLOM0.4C39 PO; +TAMS-18 PO
== END ==
LOC: M PLAIMG 14:25
PROVIDERS: ATTEND Physician Assistant
DX: I77.810 Thoracic aortic ectasia (principal); I08.0 Rheumatic disorders of both mitral and aortic valves; I31.39 Other pericardial effusion (noninflammatory)

== ENCOUNTER → 2024-11-10 | Outpatient (REF) | payer OTHER, MEDICARE | LOC: M LAB REF 11:56 | PROVIDERS: ATTEND Internal Medicine | DX: K74.02 Hepatic fibrosis, advanced fibrosis (principal) ==

== ENCOUNTER → 2025-04-09 | Outpatient (CLI) | payer MEDICARE, OTHER | LOC: M RAD 08:55 | PROVIDERS: ATTEND Physician Assistant | DX: Z87.442 Personal history of urinary calculi (principal) ==